=== PATIENT | female | born 1960 | race Caucasian/White ===

== ENCOUNTER 2019-06-05 18:22 | Emergency (ER) | payer OTHER ==
[~2019-06-05] VITALS: Ht 175.3 cm; Wt 68.0 kg
[~2019-06-05 18:22] MED LIST: GABAPENTIN300 MG PO; KLONOPIN1 MG PO; NORCO 7.5-3251 EACH PO; PROZAC20 MG PO
--- OUTSIDE RECORDS SUMMARY | 2019-06-05 18:25 | XMS REPORT | Continuity of Care Document ---
Author Author be2 Organization be2 Address Unknown Phone Unavailable Care Team Providers Care Wireless Technician Name Role Phone be2 Unavailable Unavailable Problems Problem Status Onset Date Classification Date Reported Comments Source COLON Active 03/12/2018 [facility] R10.9 - UNSPECIFIED ABDOMINAL PAIN Active 03/07/2018 [facility] Z13.820 - ENCOUNTER FOR SCREENING FOR OS Active 07/18/2017 ELIEL Brock UNK Active 06/15/2017 [facility] M25.511 - PAIN IN RIGHT SHOULDER Active [facility] ANGINA PECTORIS, ANXIETY ATTACK, HYPERTE Active 09/03/2016 [facility] CHEST PAIN/ARM PAIN Active 09/03/2016 [facility] Anxiety (finding) Resolved Problem 03/17/2018 ELIEL Brock,[facility] Hypertensive disorder, systemic arterial (disorder) Resolved Problem 03/17/2018 ELIEL Brock,[facility] Family history of aneurysm of thoracic aorta (situation) Resolved Problem 03/17/2018 [facility] History of calculus of kidney (situation) Resolved Problem 03/17/2018 [facility] Hysterectomy (procedure) Resolved Problem 03/17/2018 ELIEL Brock,[facility] ANGINA PECTORIS, UNSPECIFIED Active [facility] PANIC DISORDER WITHOUT AGORAPHOBIA Active [facility] HYPERTENSIVE URGENCY Active [facility] Medications Medication Details Route Status Patient Instructions Ordering Provider Order Date Source Ventolin HFA 2 puff, INHALATION, PRN, every 4-6 hours as needed, 0 Refill(s) Active 03/13/2018 [facility] pregabalin 50 MG Oral Capsule [Lyrica] 50 mg=1 cap, PO, PRN, take every 6 hours as needed, 0 Refill(s) Active 03/13/2018 [facility] Ipratropium Salix 0.021 MG/ACTUAT Metered Dose Nasal Monhegan 2 spray, Each Affected Nostril, TID, # 30 ml, 0 Refill(s) Active 03/13/2018 [facility] Acetaminophen 325 MG / Hydrocodone Bitartrate 10 MG Oral Tablet [Sesser 10/325] 1 tab, PO, Q6H, PRN for pain, # 24 tab, 0 Refill(s) Active 03/13/2018 [facility] gabapentin 300 MG Oral Capsule 300 mg=1 cap, PO, TID, # 90 cap, 0 Refill(s) Active 03/13/2018 [facility] 24 HR Divalproex Sodium 500 MG Extended Release Tablet 500 mg=1 tab, PO, BID, 0 Refill(s) Active 03/13/2018 [facility] Metoprolol Tartrate 25 mg oral tablet 25 mg=1 tab, PO, BID, # 60 tab, 0 Refill(s) Active 06/22/2017 [facility] Sodium Chloride 0.9% IV 1000 mL 1,000 mL, Rate: 25 ml/hr, Infuse over: 40 hr, Route: IV, Dosing Weight 70.909 kg, Total Volume: 1,000, Start date: 06/22/17 10:09:00 CDT, Duration: 30 day, Stop date: 07/22/17 10:08:00 CDT Inactive 06/22/2017 [facility] omeprazole 40 mg oral delayed release capsule 40 mg=1 cap, PO, Daily, # 30 cap, 0 Refill(s) Active 06/21/2017 [facility] sertraline 100 mg oral tablet 100 mg=1 tab, PO, Daily, # 30 tab, 0 Refill(s) Active 06/21/2017 [facility] divalproex sodium 250 mg oral enteric coated tablet (Depakote) 250 mg=1 tab, PO, BID, # 60 tab, 1 Refill(s) Active 06/21/2017 [facility] meloxicam 7.5 mg oral tablet 7.5 mg=1 tab, PO, PRN, 0 Refill(s) Active 06/21/2017 [facility] Folic Acid 1 MG Oral Tablet 1 mg=1 tab, PO, Daily, # 30 tab, 0 Refill(s) Active 06/21/2017 [facility] QUEtiapine 100 mg oral tablet 100 mg=1 tab, PO, Bedtime, # 30 tab, 1 Refill(s) Active 06/21/2017 [facility] gabapentin 600 MG Oral Tablet 600 mg=1 tab, PO, TID, # 270 tab, 0 Refill(s) Active 06/21/2017 [facility] Buspirone 7.5 mg, 1.5 tab, Route: PO, Drug form: TAB, Bedtime, Dosing Weight 68.182, kg, Start date: 09/04/16 21:00:00 FREEZER WORKER, Duration: 30 day, Stop date: 10/03/16 21:00:00 CSTNotes: (Same As: BuSpar) Inactive 09/05/2016 [facility] Simvastatin 20 mg, 1 tab, Route: PO, Drug form: TAB, Bedtime, Dosing Weight 68.182, kg, Start date: 09/04/16 21:00:00 FREEZER WORKER, Duration: 30 day, Stop date: 10/03/16 21:00:00 CSTNotes: (Same as: Zocor) Inactive 09/05/2016 [facility] citalopram 20 mg oral tablet 20 mg=1 tab, PO, Daily, # 30 tab, 0 Refill(s), Pharmacy: [facility]/pharmacy #[id number] Active 09/04/2016 [facility] clonazePAM 0.5 mg oral tablet 0.5 mg=1 tab, PO, BID, # 30 tab, 0 Refill(s) Active 09/04/2016 [facility] Lisinopril 10 mg, 2 tab, Route: PO, Drug form: TAB, Daily, Dosing Weight 68.182, kg, Start date: 09/04/16 9:00:00 FREEZER WORKER, Duration: 30 day, Stop date: 10/03/16 9:00:00 CSTNotes: (Same as: Prinivil, Zestril) Inactive 09/04/2016 [facility] Saline Flush 0.9% 10 ml, Route: IVP, Drug Form: INJ, Dosing Weight 68.182, kg, Q12H, Start date: 09/04/16 9:00:00 FREEZER WORKER, Duration: 30 day, Stop date: 10/03/16 21:00:00 CSTNotes: (Same as: BD Posiflush) Inactive 09/04/2016 [facility] duloxetine 30 mg, 1 cap, Route: PO, Drug form: DRC, BID, Dosing Weight 68.182, kg, Start date: 09/04/16 9:00:00 FREEZER WORKER, Duration: 30 day, Stop date: 10/03/16 17:00:00 CSTNotes: (Same as: Cymbalta) (Do Not Crush) Inactive 09/04/2016 [facility] Citalopram 10 mg, 1 tab, Route: PO, Drug form: TAB, Daily, Dosing Weight 68.182, kg, Start date: 09/04/16 9:00:00 FREEZER WORKER, Duration: 30 day, Stop date: 10/03/16 9:00:00 FREEZER WORKER Inactive 09/04/2016 [facility] pneumococcal capsular polysaccharide type 1 vaccine / pneumococcal capsular polysaccharide type 10A vaccine / pneumococcal capsular polysaccharide type 11A vaccine / pneumococcal capsular polysaccharide type 12F vaccine / pneumococcal capsular polysacchar 0.5 mL, Route: IM, Drug Form: INJ, Daily, Start date: 09/04/16 9:00:00 FREEZER WORKER, Duration: 1 doses or times, Stop date: 09/04/16 9:00:00 CSTNotes: (Same as: Pneumovax 23) Refrigerate Inactive 09/04/2016 [facility] influenza virus vaccine, inactivated 0.5 mL, Route: IM, Drug Form: SUSP, Daily, Start date: 09/04/16 9:00:00 FREEZER WORKER, Duration: 1 doses or times, Stop date: 09/04/16 9:00:00 CSTNotes: (Same as: Fluzone Quadrivalent, Fluarix Quadrivalent) For 3 years of age and older (0.5 mL IM) Shake well before use Inactive 09/04/2016 [facility] metoprolol tartrate 25 mg, 1 tab, Route: PO, Drug form: TAB, BID, Dosing Weight 68.182, kg, Start date: 09/04/16 9:00:00 FREEZER WORKER, Duration: 30 day, Stop date: 10/03/16 21:00:00 CSTNotes: (Same as: Lopressor) Inactive 09/04/2016 [facility] potassium chloride 20 mEq oral tablet, extended release 20 mEq, 1 tab, Route: PO, Drug form: ERTAB, Daily, Dosing Weight 68.182, kg, Start date: 09/04/16 9:00:00 FREEZER WORKER, Duration: 30 day, Stop date: 10/03/16 9:00:00 CSTNotes: (Same as: K-Dur 20) "Do Not Crush" With food and full glass of water Inactive 09/04/2016 [facility] ergocalciferol 50,000 IntlUnit, 1 cap, Route: PO, Drug form: CAP, Daily, Dosing Weight 68.182, kg, Start date: 09/04/16 9:00:00 FREEZER WORKER, Duration: 3 day, Stop date: 09/06/16 9:00:00 CSTNotes: (Same as: Vitamin D) "Do Not Crush" Inactive 09/04/2016 [facility] atropine 0.5 mg, 5 mL, Route: IVP, Drug form: INJ, PRN, PRN Bradycardia, Start date: 09/03/16 23:20:00 FREEZER WORKER, Duration: 30 day, Stop date: 10/03/16 23:19:00 FREEZER WORKER No Longer Active 09/04/2016 [facility] nitroglycerin 0.4 mg sublingual tablet 0.4 mg, 1 tab, Route: SL, Drug form: TAB, Q5Min, PRN Chest Pain, Start date: 09/03/16 23:20:00 FREEZER WORKER, Duration: 30 day, Stop date: 10/03/16 23:19:00 CSTNotes: (Same as:Nitroquick, Nitrostat) "Do Not Crush" Sublingual tablet No Longer Active 09/04/2016 [facility] Trazodone Hydrochloride 50 MG Oral Tablet 50 mg, 1 tab, Route: PO, Drug form: TAB, Bedtime, Dosing Weight 68.182, kg, PRN Insomnia, Start date: 09/03/16 22:19:00 FREEZER WORKER, Duration: 30 day, Stop date: 10/03/16 22:18:00 CSTNotes: (Same As: Desyrel) No Longer Active 09/04/2016 [facility] tramadol hydrochloride 50 MG Oral Tablet 50 mg, 1 tab, Route: PO, Drug form: TAB, Q6H, Dosing Weight 68.182, kg, PRN Pain Score 7-10, Start date: 09/03/16 22:19:00 FREEZER WORKER, Duration: 30 day, Stop date: 10/03/16 22:18:00 CSTNotes: Not to exceed 400mg/day. (Same As: Ultram) No Longer Active 09/04/2016 [facility] Morphine 2 mg, 1 mL, Route: IVP, Drug form: INJ, Q2H, Dosing Weight 68.182, kg, PRN Chest Pain, Start date: 09/03/16 22:16:00 FREEZER WORKER, Duration: 30 day, Stop date: 10/03/16 22:15:00 CSTNotes: (Same as:MORPhine Sulfate) No Longer Active 09/04/2016 [facility] Hydralazine 10 mg, 0.5 mL, Route: IV, Drug form: INJ, Q4H, Dosing Weight 68.182, kg, PRN Hypertension, Start date: 09/03/16 22:16:00 FREEZER WORKER, Duration: 30 day, Stop date: 10/03/16 22:15:00 CSTNotes: (Same as: Apresoline) Push over 5 minutes No Longer Active 09/04/2016 [facility] Nitroglycerin 0.4 MG Sublingual Tablet [Nitrostat] 0.4 mg, 1 tab, Route: SL, Drug form: TAB, Q5Min, Dosing Weight 68.182, kg, PRN Chest Pain, Start date: 09/03/16 22:16:00 FREEZER WORKER, Duration: 3 doses or times, Stop date: Limited # of timesNotes: (Same as:Nitroquick, Nitrostat) "Do Not Crush" Sublingual tablet No Longer Active 09/04/2016 [facility] Metoprolol 5 mg, 5 mL, Route: IV, Drug form: INJ, Q2H, Dosing Weight 68.182, kg, PRN Tachycardia, Start date: 09/03/16 22:16:00 FREEZER WORKER, Duration: 30 day, Stop date: 10/03/16 22:15:00 CSTNotes: (Same as: Lopressor) Push over 2 minutes No Longer Active 09/04/2016 [facility] Aspirin 325 MG Oral Tablet 325 mg, 1 tab, Route: PO, Drug form: TAB, Daily, Dosing Weight 68.182, kg, Start date: 09/03/16 22:15:00 FREEZER WORKER, Duration: 30 day, Stop date: 10/03/16 9:00:00 CSTNotes: Take with food. No Longer Active 09/04/2016 [facility] Alprazolam 0.5 MG Oral Tablet [Xanax] 0.5 mg, 1 tab, Route: PO, Drug form: TAB, ONCE, Dosing Weight 68.182, kg, Priority: STAT, Start date: 09/03/16 22:10:00 FREEZER WORKER, Stop date: 09/03/16 22:10:00 CSTNotes: With food or milk (Same as: Xanax) Inactive 09/04/2016 [facility] Saline Flush 0.9% 10 ml, Route: IVP, Drug Form: INJ, Dosing Weight 68.182, kg, PRN, PRN Line Flush, Start date: 09/03/16 22:01:00 FREEZER WORKER, Duration: 30 day, Stop date: 10/03/16 22:00:00 CSTNotes: (Same as: BD Posiflush) No Longer Active 09/04/2016 [facility] Morphine 4 mg, 2 mL, Route: IVP, Drug form: INJ, Q2H, Dosing Weight 68.182, kg, PRN Pain Score 7-10, Start date: 09/03/16 22:01:00 FREEZER WORKER, Duration: 30 day, Stop date: 10/03/16 22:00:00 CSTNotes: (Same as:MORPhine Sulfate) No Longer Active 09/04/2016 [facility] Nitroglycerin 0.4 mg, 1 tab, Route: SL, Drug form: TAB, Q5Min, Dosing Weight 68.182, kg, PRN Chest Pain, Start date: 09/03/16 22:01:00 FREEZER WORKER, Duration: 3 doses or times, Stop date: Limited # of timesNotes: (Same as: Nitroquick, Nitrostat) "Do Not Crush" Sublingual tablet Inactive 09/04/2016 [facility] Ondansetron 4 mg, 1 tab, Route: PO, Drug form: TAB, Q8H, Dosing Weight 68.182, kg, PRN Nausea & Vomiting, Start date: 09/03/16 22:01:00 FREEZER WORKER, Duration: 30 day, Stop date: 10/03/16 22:00:00 CSTNotes: (Same as: Zofran) No Longer Active 09/04/2016 [facility] Temazepam 15 mg, 1 cap, Route: PO, Drug form: CAP, Bedtime, Dosing Weight 68.182, kg, PRN Insomnia, Start date: 09/03/16 22:01:00 FREEZER WORKER, Duration: 30 day, Stop date: 10/03/16 22:00:00 CSTNotes: (Same As: Restoril) No Longer Active 09/04/2016 [facility] Acetaminophen 650 mg, 2 tab, Route: PO, Drug form: TAB, Q4H, Dosing Weight 68.182, kg, PRN Headache 1-5, Start date: 09/03/16 22:01:00 FREEZER WORKER, Duration: 30 day, Stop date: 10/03/16 22:00:00 CSTNotes: Do not exceed 4 gm/day. (Same as: Tylenol) No Longer Active 09/04/2016 [facility] Sodium Chloride 0.154 MEQ/ML Injectable Solution 1,000 mL, Rate: 50 ml/hr, Infuse over: 20 hr, Route: IV, Dosing Weight 68.182 kg, Total Volume: 1,000, Start date: 09/03/16 22:01:00 FREEZER WORKER, Stop date: 10/03/16 22:00:00 FREEZER WORKER No Longer Active 09/04/2016 [facility] Trazodone Hydrochloride 50 MG Oral Tablet 50 mg=1 tab, PO, Bedtime, PRN Insomnia, 0 Refill(s) Active 09/04/2016 [facility] FLUoxetine 20 mg oral capsule 20 mg=1 cap, PO, Daily, 0 Refill(s) No Longer Active 09/04/2016 [facility] tramadol hydrochloride 50 MG Oral Tablet 50 mg=1 tab, PO, Q6H, PRN Pain Score 7-10, 0 Refill(s) Active 09/04/2016 [facility] cyclobenzaprine 10 mg oral tablet 10 mg=1 tab, PO, Q8H, PRN as needed for muscle spasm, 0 Refill(s) No Longer Active 09/04/2016 [facility] Ativan 2 mg, Route: IVP, Drug form: INJ, ONCE, Dosing Weight 68.182, kg, Priority: STAT, Start date: 09/03/16 21:29:00 FREEZER WORKER, Stop date: 09/03/16 21:29:00 FREEZER WORKER Inactive 09/04/2016 [facility] potassium chloride 20 mEq oral tablet, extended release 40 mEq, 2 tab, Route: PO, Drug form: ERTAB, ONCE, Dosing Weight 68.182, kg, Priority: STAT, Start date: 09/03/16 21:19:00 FREEZER WORKER, Stop date: 09/03/16 21:19:00 CSTNotes: (Same as: K-Dur 20) "Do Not Crush" With food and full glass of water Inactive 09/04/2016 [facility] Dilaudid 0.5 mg, Route: IVP, ONCE, Dosing Weight 68.182, kg, Priority: STAT, Start date: 09/03/16 20:45:00 FREEZER WORKER, Stop date: 09/03/16 20:45:00 FREEZER WORKER Inactive 09/04/2016 [facility] Ativan 1 mg, Route: IVP, Drug form: INJ, ONCE, Dosing Weight 68.182, kg, Priority: STAT, Start date: 09/03/16 18:19:00 FREEZER WORKER, Stop date: 09/03/16 18:19:00 FREEZER WORKER Inactive 09/04/2016 [facility] Zofran 8 mg, Route: IVP, Drug form: INJ, ONCE, Dosing Weight 68.182, kg, Priority: STAT, Start date: 09/03/16 18:18:00 FREEZER WORKER, Stop date: 09/03/16 18:18:00 FREEZER WORKER Inactive 09/04/2016 [facility] Dilaudid 0.5 mg, Route: IVP, ONCE, Dosing Weight 68.182, kg, Priority: STAT, Start date: 09/03/16 18:18:00 FREEZER WORKER, Stop date: 09/03/16 18:18:00 FREEZER WORKER Inactive 09/04/2016 [facility] Saline Flush 0.9% 10 mL, Route: IVP, Drug Form: INJ, Dosing Weight 79.545, kg, PRN, PRN Line Flush, Start date: 09/03/16 16:44:00 FREEZER WORKER, Duration: 30 day, Stop date: 10/03/16 16:43:00 CSTNotes: (Same as: BD Posiflush) Inactive 09/03/2016 [facility] Allergies, Adverse Reactions, Alerts No Known Medication Allergies Immunizations Immunization Date Given Site Status Last Updated Comments Source pneumococcal 23-valent vaccine 09/04/2016 Not Given [facility] [place] influenza virus vaccine, inactivated 09/04/2016 Not Given [facility] Results Order Name Results Value Reference Range Date Interpretation Comments Source CARDIAC ENZYMES Troponin-I <0.02 0.00 - 0.40 09/04/2016 [facility] CARDIAC ENZYMES Total CK 61 12 - 191 09/04/2016 [facility] CARDIAC ENZYMES BNP 59 <=100 pg/mL 09/04/2016 [facility] CHEM PANEL Bili Indirect 0.2 0.0 - 1.0 09/04/2016 [facility] CHEM PANEL Bili Direct 0.3 0.0 - 0.3 09/04/2016 [facility] CHEM PANEL A/G Ratio 0.9 0.7 - 1.6 09/04/2016 [facility] CHEM PANEL Globulin 3.6 2.7 - 4.2 09/04/2016 [facility] CHEM PANEL Alk Phos 162 39 - 136 09/04/2016 [facility] CHEM PANEL Bili Total 0.5 0.2 - 1.3 09/04/2016 [facility] CHEM PANEL AST 311 0 - 37 09/04/2016 [facility] CHEM PANEL Albumin Lvl 3.1 3.5 - 5.0 09/04/2016 [facility] CHEM PANEL ALT 181 0 - 65 09/04/2016 [facility] CHEM PANEL Total Protein 6.7 6.4 - 8.4 09/04/2016 [facility] CHEM PANEL Vitamin D2 1,25 (OH)2 <10 09/04/2016 [facility] CHEM PANEL Vitamin D3 1,25 (OH)2 44 09/04/2016 Result Comment: Performed At: [facility]
[address], [place] [id number]
Cong Kincaid MD Ph:[phone] [facility] CHEM PANEL Vitamin D 1,25 (OH)2 Total 54 09/04/2016 Result Comment: Reference Range:
Adults: 21 - 65 [facility] CHEM PANEL Uric Acid 4.1 2.5 - 7.0 09/04/2016 [facility] HEMATOLOGY Sed Rate 8 0 - 20 09/04/2016 [facility] IMMUNOLOGY Homocyst Tot 26.9 3.7 - 13.9 09/04/2016 [facility] LIPIDS CHD Risk 3.75 3.90 - 5.80 09/04/2016 [facility] LIPIDS VLDL 16 09/04/2016 [facility] LIPIDS Trig 78 <=149 mg/dL 09/04/2016 [facility] LIPIDS Chol 135 <=199 mg/dL 09/04/2016 [facility] LIPIDS HDL 36 >=61 mg/dL 09/04/2016 [facility] LIPIDS LDL (Calculated) 83 <=99 mg/dL 09/04/2016 [facility] SPECIAL CHEMISTRY Hgb A1C 5.9 <=5.6 % 09/04/2016 [facility] CARDIAC ENZYMES Troponin-I <0.02 0.00 - 0.40 09/04/2016 [facility] CARDIAC ENZYMES Total CK 96 12 - 191 09/04/2016 [facility] CARDIAC ENZYMES CK MB Index 1.5 0.0 - 2.5 09/04/2016 [facility] CARDIAC ENZYMES CK MB 1.4 0.5 - 3.6 09/04/2016 [facility] CHEM PANEL Phosphorus 4.0 2.5 - 4.5 09/04/2016 [facility] CHEM PANEL Magnesium Lvl 2.4 1.8 - 2.4 09/04/2016 [facility] LIPIDS CHD Risk 4.35 3.90 - 5.80 09/04/2016 [facility] LIPIDS Chol 148 <=199 mg/dL 09/04/2016 [facility] LIPIDS HDL 34 >=61 mg/dL 09/04/2016 [facility] LIPIDS Trig 97 <=149 mg/dL 09/04/2016 [facility] LIPIDS LDL (Calculated) 95 <=99 mg/dL 09/04/2016 [facility] LIPIDS VLDL 19 09/04/2016 [facility] CARDIAC ENZYMES CK MB Index 2.6 0.0 - 2.5 09/03/2016 [facility] CARDIAC ENZYMES CK MB 1.8 0.5 - 3.6 09/03/2016 [facility] CARDIAC ENZYMES Total CK 69 12 - 191 09/03/2016 [facility] CARDIAC ENZYMES Troponin-I <0.02 0.00 - 0.40 09/03/2016 [facility] CHEM PANEL eGFR 82 09/03/2016 Result Comment: The eGFR is calculated using the CKD-EPI formula. In most young, healthy individuals the eGFR will be >90 mL/min/1.73m2. The eGFR declines with age. An eGFR of 60-89 may be normal in some populations, particularly the elderly, for whom the CKD-EPI formula has not been extensively validated. Use of the eGFR is not recommended in the following populations:

Individuals with unstable creatinine concentrations, including patients and those with serious co-morbid conditions.

Patients with extremes in muscle mass or diet.

The data above are obtained from the National Kidney Disease Education Program (NKDEP) which additionally recommends that when the eGFR is used in patients with extremes of body mass index for purposes of drug dosing, the eGFR should be multiplied by the estimated BMI. [facility] CHEM PANEL BUN 7 7 - 22 09/03/2016 [facility] CHEM PANEL CO2 26 24 - 32 09/03/2016 [facility] CHEM PANEL Glucose Lvl 94 70 - 99 09/03/2016 [facility] CHEM PANEL Albumin Lvl 3.6 3.5 - 5.0 09/03/2016 [facility] CHEM PANEL Globulin 4.0 2.7 - 4.2 09/03/2016 [facility] CHEM PANEL Potassium Lvl 3.0 3.5 - 5.1 09/03/2016 Result Comment: Critical Result(s) called to aster at 09/03/2016 18:29 by_sol. Read back OK. [facility] CHEM PANEL Chloride Lvl 104 95 - 109 09/03/2016 [facility] CHEM PANEL Creatinine Lvl 0.80 0.50 - 1.40 09/03/2016 [facility] Sodium Lvl 140 135 - 145 09/03/2016 [facility] Calcium Lvl 8.7 8.5 - 10.5 09/03/2016 [facility] Alk Phos 129 39 - 136 09/03/2016 [facility] CHEM PANEL Bili Total 0.6 0.2 - 1.3 09/03/2016 [facility] B/C Ratio 9 6 - 25 09/03/2016 [facility] Total Protein 7.6 6.4 - 8.4 09/03/2016 [facility] AGAP 13.0 10.0 - 20.0 09/03/2016 [facility] A/G Ratio 0.9 0.7 - 1.6 09/03/2016 [facility] PANEL ALT 29 0 - 65 09/03/2016 [facility] PAN[facility] AST 53 0 - 37 09/03/2016 [facility] HEMATOLOGY Eosinophils # 8.0 0.0 - 0.5 09/03/2016 [facility] HEMATOLOGY Basophils # 0.2 0.0 - 0.2 09/03/2016 [facility] HEMATOLOGY Lymphocytes # 2.7 1.0 - 5.5 09/03/2016 [facility] HEMATOLOGY Segs-Bands # 6.7 1.5 - 8.1 09/03/2016 [facility] HEMATOLOGY Monocytes # 0.5 0.0 - 0.8 09/03/2016 [facility] HEMATOLOGY Basophils 1.3 0.0 - 1.0 09/03/2016 [facility] HEMATOLOGY Eosinophils 44.0 0.0 - 4.0 09/03/2016 [facility] HEMATOLOGY Monocytes 2.7 2.0 - 12.0 09/03/2016 [facility] HEMATOLOGY Segs 37.2 45.0 - 75.0 09/03/2016 [facility] HEMATOLOGY RBC Morph Normal (09/03/16 5:45 PM) 09/03/2016 [facility] HEMATOLOGY Plt Morph Normal (09/03/16 5:45 PM) 09/03/2016 [facility] HEMATOLOGY Lymphocytes 14.8 20.0 - 40.0 09/03/2016 [facility] HEMATOLOGY PTT 28.9 22.9 - 35.8 09/03/2016 [facility] HEMATOLOGY PT 13.1 12.0 - 14.7 09/03/2016 [facility] HEMATOLOGY INR 0.97 0.85 - 1.17 09/03/2016 [facility] HEMATOLOGY MPV 8.1 7.4 - 10.4 09/03/2016 [facility] Platelet 314 133 - 450 09/03/2016 [facility] RDW 16.9 11.5 - 14.5 09/03/2016 [facility] MCHC 32.3 32.0 - 36.0 09/03/2016 [facility] MCH 25.8 27.0 - 31.0 09/03/2016 [facility] WBC 18.1 3.7 - 10.4 09/03/2016 [facility] Hct 35.9 36.0 - 48.0 09/03/2016 [facility] Hgb 11.6 12.0 - 16.0 09/03/2016 [facility] RBC 4.51 4.20 - 5.40 09/03/2016 [facility] MCV 79.7 80.0 - 98.0 09/03/2016 [facility] URINE AND STOOL UA Sq Epi Occasional /LPF Few /LPF 09/03/2016 [facility] URINE AND STOOL UA WBC <1 0 - 5 09/03/2016 [facility] URINE AND STOOL UA Urobilinogen <=1.0 mg/dL 0.1 - 1.0 09/03/2016 [facility] URINE AND STOOL UA RBC 1 0 - 2 09/03/2016 [facility] URINE AND STOOL UA Color Colorless 09/03/2016 [facility] URINE AND STOOL UA Ketones Negative mg/dL Negative mg/dL 09/03/2016 [facility] URINE AND STOOL UA Nitrite Negative (09/03/16 4:53 PM) Negative 09/03/2016 [facility] URINE AND STOOL UA Leuk Est Negative (09/03/16 4:53 PM) Negative 09/03/2016 [facility] URINE AND STOOL UA Bili Negative *NA* (09/03/16 4:53 PM) Negative 09/03/2016 [facility] URINE AND STOOL UA Blood Small *ABN* (09/03/16 4:53 PM) Negative 09/03/2016 [facility] URINE AND STOOL UA Spec Grav 1.003 <=1.030 09/03/2016 [facility] URINE AND STOOL UA pH 6.0 5.0 - 8.0 09/03/2016 [facility] URINE AND STOOL UA Turbidity Clear (09/03/16 4:53 PM) Clear 09/03/2016 [facility] URINE AND STOOL UA Protein Negative mg/dL Negative mg/dL 09/03/2016 [facility] URINE AND STOOL UA Glucose Negative mg/dL Negative mg/dL 09/03/2016 [facility] Pathology Reports No Data Provided for This Section Diagnostic Reports Report Value Date Source Abdomen 2 views DX EXAM: XR ABDOMEN 2 VIEWS DATE: 03/07/2018 2:13 PM CDT INDICATION: - K59.00 Constipation, unspecified ADDITIONAL INFORMATION: None. COMPARISON: CT chest abdomen and pelvis 09/03/2016. TECHNIQUE: Upright and supine abdominal radiographs. FINDINGS: Lines, tubes and hardware: None. Lower thorax: Unremarkable where visualized. Median sternotomy wires are partially visualized. Abdomen and bowel: Scattered bowel gas and moderate colonic stool burden. No andrew dilation of bowel loops. There are nonspecific scattered air-fluid levels in the left/mid abdomen on the upright view. Bones and soft tissues: No acute abnormality. Multilevel degenerative lumbar spondylosis. IMPRESSION: 1. Nonobstructive bowel gas pattern with moderate stool burden. 2. Nonspecific, air-fluid level in few bowel loops in the left mid abdomen. 03/07/2018 [facility] Chest 2 views DX EXAM: XR CHEST 2 VIEWS DATE: 07/13/2017 10:17 AM CDT INDICATION: - R05 Cough COMPARISON: 09/03/2016 TECHNIQUE: PA and lateral chest radiographs FINDINGS: No lung parenchymal or pleural abnormalities are seen. Keshia and pulmonary vasculature are normal. Cardiomediastinal silhouette is normal in appearance. No acute bony abnormality is identified. A healed right eighth rib fracture is again demonstrated. Midline sternotomy wires are again seen. The patient has undergone interim ACDF procedure of the inferior cervical spine with hardware visualized. IMPRESSION: No acute cardiopulmonary abnormality. Interim cervical spine ACDF surgery. 07/13/2017 [facility] Spine lumbar wo contrast MRI LUMBAR SPINE MRI 03/12/2017. TECHNIQUE: Sagittal T1, sagittal T2 with fat saturation, axial T1 and axial T2 images were obtained. Comparison: CT of the abdomen and pelvis from 03/23/16 FINDINGS: Moderate type I and type III (fibrovascular/edematous and sclerotic) endplate changes are noted at L4-L5, without additional signs of infection. The vertebrae are otherwise normal in shape, signal intensity and alignment. The intervertebral disks are desiccated with moderate height loss at L4-L5. The paravertebral musculature demonstrates mild fatty atrophy in keeping with deconditioning. The conus medullaris terminates normally at the L1-L2 level. There is no intradural mass lesion. L1-L2 through L3-L4: Minimal disc bulge and facet hypertrophy. No disc herniation or significant stenosis. L4-L5: Moderate disc bulge and facet hypertrophy with mild ligamentum flavum thickening. This results in moderate left greater than right neural foraminal narrowing with deformity of the L4 nerve roots. Mild lateral recess narrowing. L5-S1: Minimal disc bulge with mild to moderate right greater than left facet hypertrophy. This results in moderate right and mild left neural foraminal narrowing with deformity of the right L5 nerve root. IMPRESSION: Moderate lower lumbar degenerative changes as detailed above including type I and type III moderate endplate changes at L4-L5. Foraminal stenoses with deformity of the left greater than right L4 and right L5 nerve roots. 03/12/2017 [facility] Spine cervical wo contrast MRI CERVICAL SPINE MRI WITHOUT CONTRAST: 03/12/2017 TECHNIQUE: Sagittal T1 and T2 weighted images were followed by axial T2-weighted views of the cervical spine without IV contrast. Comparison: 12/12/[address] FINDINGS: The cervical cord is normal in size and signal intensity. There is no syrinx. The cerebellar tonsils are normal in position above the level of the foramen magnum. Mild type I (fibrovascular or edematous) endplate changes are noted anteriorly at C5-C6 greater than C6-C7. No additional signs of infection. The vertebrae are otherwise normal in shape, signal intensity and alignment. The intervertebral disks are desiccated with mild height loss probably at C5-C6 through C7-T1. The prevertebral soft tissues are normal. C2-C3: No abnormality. C3-C4: Uncovertebral and moderate right greater than left facet hypertrophy results in moderate right and mild left neural foraminal narrowing, with deformity of the right C4 nerve root. C4-C5: Mild disc osteophyte complexes with moderate uncovertebral and facet hypertrophy. This results in moderate left greater right neural foraminal narrowing with deformity of the C5 nerve roots. C5-C6: Moderate disc osteophyte complexes measuring up to 3 mm diffusely with moderate left greater than right uncovertebral and mild facet hypertrophy. This results in moderate left and mild right neural foraminal narrowing with deformity/compression of the left C6 nerve root. Mild to moderate left canal stenosis with slight anterior cord flattening. C6-C7: Mild disc osteophyte complexes with mild uncovertebral facet hypertrophy resulting in mild bilateral neural foraminal narrowing. C7-T1: No abnormality. IMPRESSION: Moderate mid cervical degenerative changes as detailed above including: mild type I endplate changes, mild to moderate left C5-C6 canal stenosis with slight anterior cord flattening, and multilevel foraminal stenoses including deformity of the left greater than right C5 and the left C6 nerve roots. 03/12/2017 [facility] Chest US EXAM: Left infraclavicular superficial ultrasound. CLINICAL HX: R22.2 Localized swelling, mass and lump, trunk - R22.2 Localized swelling, mass and lump, trunk. Lump under the left clavicle for 6 months. Sometimes tender. Age: 56 years. Gender: Female. TECHNIQUE: Grayscale and Doppler sonogram targeted to the left infraclavicular region (area of palpable abnormality). COMPARISON: CT chest: 09/03/2016. FINDINGS: At the area of concern in the soft tissues: -- Mass: 3.2 x 2.6 x 3.2 cm oval heterogeneous mass with internal striations. A few spots of internal Doppler flow are present. This is not completely evaluated on this exam. -- Drainable fluid collection: None. -- Other: None. IMPRESSION: 1. In the left infraclavicular region, there is an oval heterogeneous mass. This may represent muscle tissue or a lipomatous lesion. Favor the latter, as a lipoma is present in this region on prior August 2016 CT chest (series 2 image 5). Correlate clinically. If additional imaging evaluation is desired, repeat noncontrast CT chest with a BB marking the area can be considered. 03/12/2017 [facility] Hip 2/3 views uni DX EXAM: XR RIGHT HIP 2 VIEW EXAM: XR RIGHT FEMUR 2 VIEW DATE: 01/22/2017 1:00 PM CDT INDICATION: M25.551 Pain in right hip COMPARISON: Available TECHNIQUE: 2 views of the hip including the pelvis. 2 views of the right femur. FINDINGS: No acute fracture or malalignment is identified. Hip joint spaces are preserved bilaterally. Marginal right acetabular osteophytes and femoral neck bony prominence is consistent with mild osteoarthritis. Enthesophyte formation is seen at the iliac crest. There are minimal degenerative changes in the inferior sacroiliac joint. Soft tissues are normal. IMPRESSION: 1. No acute bony abnormality. 2. Mild osteoarthrosis of the right hip joint. 01/22/2017 [facility] Femur series DX EXAM: XR RIGHT HIP 2 VIEW EXAM: XR RIGHT FEMUR 2 VIEW DATE: 01/22/2017 1:00 PM CDT INDICATION: M25.551 Pain in right hip COMPARISON: Available TECHNIQUE: 2 views of the hip including the pelvis. 2 views of the right femur. FINDINGS: No acute fracture or malalignment is identified. Hip joint spaces are preserved bilaterally. Marginal right acetabular osteophytes and femoral neck bony prominence is consistent with mild osteoarthritis. Enthesophyte formation is seen at the iliac crest. There are minimal degenerative changes in the inferior sacroiliac joint. Soft tissues are normal. IMPRESSION: 1. No acute bony abnormality. 2. Mild osteoarthrosis of the right hip joint. 01/22/2017 [facility] Abdomen RUQ US Study: Abdomen RUQ US Clinical Indication: Abnormal Lab tests- LFT Comparison: CT abdomen and pelvis from 09/03/2016 TECHNIQUE: Grayscale and limited color sonographic evaluation of the right upper quadrant was performed with standard technique. FINDINGS: The liver is normal in size and echotexture measuring 14.2 cm. The pancreas is normal in the visualized portions. IVC is patent. Patient is status post cholecystectomy.There is no biliary duct dilatation. Common bile duct measures 2 mm. Sonographic Gonsales's sign is negative. The right kidney is normal in size and echotexture without stones or hydronephrosis. The right kidney measures 10.1 x 4.5 x 5.5 cm. The main portal vein is patent and with hepatopedal flow. No free fluid is noted. IMPRESSION: 1. Status post cholecystectomy. 2. Otherwise, normal abdomen ultrasound. SL: [id number] 09/04/2016 [facility] Chest/Abdomen/Pelvis w IV contrast CT EXAM: CT CHEST, ABDOMEN, AND PELVIS WITH CONTRAST DATE: 09/03/2016 6:18 PM [employer] INDICATION: Chest pain. COMPARISON: None. TECHNIQUE: Helical CT imaging of the chest, abdomen and pelvis was performed from thoracic inlet through the lesser trochanters following the administration of intravenous contrast in the arterial phase. Axial, sagittal and coronal multiplanar reconstructions provided. IV contrast: [address] Radiation Dose: RPQ=6658.93 mGy-cm FINDINGS: CHEST LUNG PARENCHYMA AND PLEURA: No interstitial or airspace opacities. A 3 mm fissural nodule is noted on series 4 image 24. No pneumothorax or pleural effusion. AIRWAYS: The central airways are unremarkable. Trachea is midline. MEDIASTINUM: No significant mediastinal lymphadenopathy. HEART: Median sternotomy wires are visualized. The heart is not enlarged. No pericardial effusion. VASCULAR: Mild atherosclerotic calcification of the aortic arch is visualized. No aneurysmal dilatation or dissection is present. The main pulmonary artery trunk is not enlarged. AXILLAE AND LOWER NECK: Visible portions unremarkable. ABDOMEN AND PELVIS: LIVER: Unremarkable. Interposition of the colon adjacent to the liver is identified. GALLBLADDER/BILIARY: The patient is status post cholecystectomy, with physiologic dilatation of the intrahepatic and extrahepatic ducts. PANCREAS: Unremarkable SPLEEN: Unremarkable ADRENALS: Unremarkable KIDNEYS AND URETERS: Unremarkable BLADDER: Unremarkable STOMACH: Unremarkable BOWEL: Normal in course and caliber without focal wall thickening or evidence of obstruction APPENDIX: The appendix is visualized and unremarkable. PELVIS: Patient is status post hysterectomy. PERITONEUM: No ascites or free air. LYMPH NODES: Unremarkable. VASCULAR: There is atherosclerotic calcification of the descending aorta and iliac arteries, without evidence for aneurysmal dilatation or dissection. OSSEOUS STRUCTURES: Multilevel degenerative changes of the thoracolumbar spine are visualized, most pronounced at L4-L5. SOFT TISSUES: Unremarkable IMPRESSION: No acute abnormality within the chest, abdomen, or pelvis. Specifically, there is no evidence for aortic dissection. SL: [id number] 09/03/2016 [facility] Chest 1view DX Patient Name: RAGHAV AGUIRRE : 1960; Age: 56 years y/o Female MR: [id number] Study: Chest 1view DX dated 09/03/2016 Clinical Indication: Chest pain; Comparison: None There appears to be a prior right 8th posterior lateral rib fracture. There is interposition of bowel between the liver and right hemidiaphragm. Patient is status post median sternotomy. Heart size is normal. Thoracic aorta is mildly tortuous and contains calcification. Mediastinal structures otherwise unremarkable. No focal infiltrates within the lungs, no edema and no pneumothorax. SL: [id number] 09/03/2016 [facility] Consultation Notes No Data Provided for This Section Discharge Summaries No Data Provided for This Section History and Physicals No Data Provided for This Section Vital Signs Vital Sign Value Date Comments Source Systolic (mm Hg) 110 03/14/2018 [facility] Diastolic (mm Hg) 68 03/14/2018 [facility] Respitory Rate 20 03/14/2018 [facility] Systolic (mm Hg) 108 03/14/2018 [facility] Diastolic (mm Hg) 58 03/14/2018 [facility] Respitory Rate 20 03/14/2018 [facility] Systolic (mm Hg) 69 03/14/2018 [facility] Diastolic (mm Hg) 54 03/14/2018 [facility] Respitory Rate 19 03/14/2018 [facility] BMI Calculated 27.5 03/13/2018 [facility] Weight 77.273 03/13/2018 [facility] Height 167.64 cm 03/13/2018 [facility] Systolic (mm Hg) 118 06/22/2017 [facility] Diastolic (mm Hg) 61 06/22/2017 [facility] Respitory Rate 16 06/22/2017 [facility] Respitory Rate 16 06/22/2017 [facility] Systolic (mm Hg) 118 06/22/2017 [facility] Diastolic (mm Hg) 58 06/22/2017 [facility] Respitory Rate 18 06/22/2017 [facility] Systolic (mm Hg) 118 06/22/2017 [facility] Diastolic (mm Hg) 61 06/22/2017 [facility] Height 167.64 cm 06/20/2017 [facility] BMI Calculated 25.23 06/20/2017 [facility] Weight 70.909 06/20/2017 [facility] Systolic (mm Hg) 106 09/04/2016 [facility] Diastolic (mm Hg) 66 09/04/2016 [facility] Respitory Rate 17 09/04/2016 [facility] Heart Rate 78 09/04/2016 [facility] Temperature Oral (F) 97.7 F 09/04/2016 [facility] Respitory Rate 17 09/04/2016 [facility] Systolic (mm Hg) 110 09/04/2016 [facility] Diastolic (mm Hg) 64 09/04/2016 [facility] Temperature Oral (F) 97.4 F 09/04/2016 [facility] Heart Rate 79 09/04/2016 [facility] Systolic (mm Hg) 117 09/04/2016 [facility] Diastolic (mm Hg) 75 09/04/2016 [facility] Heart Rate 86 09/04/2016 [facility] Respitory Rate 16 09/04/2016 [facility] Temperature Oral (F) 97.6 F 09/04/2016 [facility] Weight 68.182 09/04/2016 [facility] BMI Calculated 23.56 09/04/2016 [facility] Height 170.1 cm 09/04/2016 [facility] Weight 68.182 09/03/2016 [facility] Height 170.18 cm 09/03/2016 [facility] BMI Calculated 23.54 09/03/2016 [facility] Encounters Location Location Details Encounter Type Encounter Number Reason For Visit Attending Provider ADM Date DC Date Status Source [facility] Observation [id number] Bernard Mcgregor 09/03/2016 09/04/2016 [facility] [place] [facility] [id number] Pietro-Nik Cantu 12/12/2016 12/13/2016 [facility] [place] [facility] [id number] Pietro-Nik Cantu 01/22/2017 01/23/2017 [facility] [place] [facility] [id number] Lamonte Cantu 03/12/2017 03/13/2017 [facility] [id number] Nathan Soriano 06/22/2017 06/22/2017 [facility] [place] [facility] [id number] Cristobal Gonsales 07/13/2017 07/14/2017 [facility] [place] [facility] [id number] Nathan Soriano 03/07/2018 03/08/[address] [facility] Bed[facility] Outpatient [id number] Nathan Soriano 03/14/2018 03/14/2018 [facility] Procedures Procedure Code Date Perfomer Comments Source Hemorrhoid operation [id number] [facility] Laparoscopic assisted vaginal hysterectomy with repair of cystocele [id number] [facility] Open heart surgery [id number] [facility] Open reduction of dislocation of hand [id number] [facility] Removal of gallbladder [id number] [facility] Assessment and Plan No Data Provided for This Section Plan of Care No Data Provided for This Section Social History Social History Date Source Social History TypeResponse Substance Abuse Use: None. IV drug use: No. Drug use interferes with work/home: No. Ready to change: No. Household substance abuse concerns: No. Cessation Education Provided: No. Sexual Partner with STD? No. Uses condoms: No. History of sexual abuse: No. Employment/School Operates hazardous equipment: No. Alcohol Never, 0 Drinks/Episode average. 0.00 Drinks/Episode maximum. Alcohol use interferes with work or home: No. Drinks more than intended: No. Others hurt by drinking: No. Ready to change: No. Household alcohol concerns: No. Smoking Status Heavy tobacco smoker; Type: Cigarettes; Tobacco use per day: 1; Number of years: 32; Total pack years: 32; Started at age: 21.0; Stopped at age: 1; Ready to change: Yes; Concerns about tobacco use in household: Yes; Exposure to Tobacco Smoke None; Cigarette Smoking Last 365 Days Unable to obtain; Reg Smoking Cessation Counseling No 02/14/2016 ELIEL Biswasa Social History TypeResponse Substance Abuse Use: None. IV drug use: No. Drug use interferes with work/home: No. Ready to change: No. Household substance abuse concerns: No. Cessation Education Provided: No. Sexual Partner with STD? No. Uses condoms: No. History of sexual abuse: No. Employment/School Operates hazardous equipment: No. Alcohol Never, 0 Drinks/Episode average. 0.00 Drinks/Episode maximum. Alcohol use interferes with work or home: No. Drinks more than intended: No. Others hurt by drinking: No. Ready to change: No. Household alcohol concerns: No. Smoking Status Heavy tobacco smoker; Type: Cigarettes; Ready to change: Yes; Concerns about tobacco use in household: Yes; Exposure to Tobacco Smoke None; Cigarette Smoking Last 365 Days Unable to obtain; Reg Smoking Cessation Counseling No; Tobacco use per day: 1; Number of years: 32; Total pack years: 32; Started at age: [age]; Stopped at age: 1; entered on: 06/21/17 02/14/2016 [facility] [place] Social History TypeResponse Substance Abuse Use: None. IV drug use: No. Drug use interferes with work/home: No. Ready to change: No. Household substance abuse concerns: No. Cessation Education Provided: No. Sexual Partner with STD? No. Uses condoms: No. History of sexual abuse: No. Employment/School Operates hazardous equipment: No. Alcohol Never, 0 Drinks/Episode average. 0.00 Drinks/Episode maximum. Alcohol use interferes with work or home: No. Drinks more than intended: No. Others hurt by drinking: No. Ready to change: No. Household alcohol concerns: No. Smoking Status Heavy tobacco smoker; Type: Cigarettes; Ready to change: Yes; Concerns about tobacco use in household: Yes; Exposure to Tobacco Smoke None; Cigarette Smoking Last 365 Days Unable to obtain; Reg Smoking Cessation Counseling No; Tobacco use per day: 1; Number of years: 32; Total pack years: 32; Started at age: 21.0; Stopped at age: 1; entered on: 03/14/18 02/14/2016 [facility] Family History No Data Provided for This Section Advance Directives No Data Provided for This Section Functional Status No Data Provided for This Section
--- OUTSIDE RECORDS SUMMARY | 2019-06-05 18:26 | XMS REPORT | Summary of Care ---
Author Author [facility] Organization [facility] Address Unknown Phone Unavailable Encounter ADAMA Raman([place]) [id number] Date(s): 09/03/16 - 09/04/16 [facility] [address] [place] [address]- Discharge Disposition: Home or Self Care Attending Physician: Bernard Matos MD Admitting Physician: Bernard Matos MD Vital Signs 1 2 3 Most recent to oldest [Reference Range]: 170.1 cm (09/03/16 10:52 PM) 170.18 cm (09/03/16 4:45 PM) Height 66.955 kg (09/04/16 6:10 AM) Current Weight 97.7 DegF (09/04/16 11:00 AM) 97.4 DegF (09/04/16 7:19 AM) 97.6 DegF (09/04/16 3:16 AM) Temperature Oral [96.4-99.1 DegF] 106/66 mmHg (09/04/16 11:00 AM) 110/64 mmHg (09/04/16 7:19 AM) 117/75 mmHg (09/04/16 3:16 AM) Blood Pressure [90-140/60-90 mmHg] 17 BRMIN (09/04/16 11:00 AM) 17 BRMIN (09/04/16 7:19 AM) 16 BRMIN (09/04/16 3:16 AM) Respiratory Rate [14-20 BRMIN] 78 bpm (09/04/16 11:00 AM) 79 bpm (09/04/16 7:19 AM) 86 bpm (09/04/16 3:16 AM) Peripheral Pulse Rate [60-100 bpm] 68.182 kg (09/03/16 10:52 PM) 68.182 kg (09/03/16 4:45 PM) Weight 23.56 m2 (09/03/16 10:52 PM) 23.54 m2 (09/03/16 4:45 PM) Body Mass Index Problem List Condition Effective Dates Status Health Status Informant Anxiety(Confirmed) Resolved BP+ - Resolved Hypertension(Confirm ed) Hysterectomy(Confirm Resolved ed) Allergies, Adverse Reactions, Alerts Substance Reaction Severity Status NKDA Active Medications acetaminophen 650 mg, 2 tab, Route: PO, Drug form: TAB, Q4H, Dosing Weight 68.182, kg, PRN Hea dache 1-5, Start date: 09/03/16 22:01:00 LINING PRESSER, Duration: 30 day, Stop date: 10/03 22:00:00 LINING PRESSER Notes: Do not exceed 4 gm/day. (Same as: Tylenol) Start Date: 09/03/16 Stop Date: 09/04/16 Status: Discontinued aspirin 325 mg tablet 325 mg, 1 tab, Route: PO, Drug form: TAB, Daily, Dosing Weight 68.182, kg, Start date: 09/03/16 22:15:00 LINING PRESSER, Duration: 30 day, Stop date: 10/03/16 9:00:00 LINING PRESSER Notes: Take with food. Start Date: 09/03/16 Stop Date: 09/04/16 Status: Discontinued Ativan 1 mg, Route: IVP, Drug form: INJ, ONCE, Dosing Weight 68.182, kg, Priority: STAT , Start date: 09/03/16 18:19:00 LINING PRESSER, Stop date: 09/03/16 18:19:00 LINING PRESSER Start Date: 09/03/16 Stop Date: 09/03/16 Status: Completed Ativan 2 mg, Route: IVP, Drug form: INJ, ONCE, Dosing Weight 68.182, kg, Priority: STAT , Start date: 09/03/16 21:29:00 LINING PRESSER, Stop date: 09/03/16 21:29:00 LINING PRESSER Start Date: 09/03/16 Stop Date: 09/03/16 Status: Completed atropine 0.5 mg, 5 mL, Route: IVP, Drug form: INJ, PRN, PRN Bradycardia, Start date: 08/09 04/22 23:20:00 LINING PRESSER, Duration: 30 day, Stop date: 10/03/16 23:19:00 LINING PRESSER Start Date: 09/03/16 Stop Date: 09/04/16 Status: Discontinued busPIRone 7.5 mg, 1.5 tab, Route: PO, Drug form: TAB, Bedtime, Dosing Weight 68.182, kg, S tart date: 09/04/16 21:00:00 LINING PRESSER, Duration: 30 day, Stop date: 10/03/16 21:00:00 LINING PRESSER Notes: (Same As: BuSpar) Start Date: 09/04/16 Stop Date: 09/04/16 Status: Canceled citalopram 10 mg, 1 tab, Route: PO, Drug form: TAB, Daily, Dosing Weight 68.182, kg, Start date: 09/04/16 9:00:00 LINING PRESSER, Duration: 30 day, Stop date: 10/03/16 9:00:00 LINING PRESSER Start Date: 09/04/16 Stop Date: 09/04/16 Status: Discontinued citalopram 20 mg oral tablet 20 mg=1 tab, PO, Daily, # 30 tab, 0 Refill(s), Pharmacy: [facility]/pharmacy #[id number] Start Date: 09/04/16 Status: Ordered clonazePAM 0.5 mg oral tablet 0.5 mg=1 tab, PO, BID, # 30 tab, 0 Refill(s) Start Date: 09/04/16 Status: Ordered cyclobenzaprine 10 mg oral tablet 10 mg=1 tab, PO, Q8H, PRN as needed for muscle spasm, 0 Refill(s) Start Date: 09/03/16 Stop Date: 09/04/16 Status: Discontinued Dilaudid 0.5 mg, Route: IVP, ONCE, Dosing Weight 68.182, kg, Priority: STAT, Start date: 09/03/16 18:18:00 LINING PRESSER, Stop date: 09/03/16 18:18:00 LINING PRESSER Start Date: 09/03/16 Stop Date: 09/03/16 Status: Completed Dilaudid 0.5 mg, Route: IVP, ONCE, Dosing Weight 68.182, kg, Priority: STAT, Start date: 09/03/16 20:45:00 LINING PRESSER, Stop date: 09/03/16 20:45:00 LINING PRESSER Start Date: 09/03/16 Stop Date: 09/03/16 Status: Completed DULoxetine 30 mg, 1 cap, Route: PO, Drug form: DRC, BID, Dosing Weight 68.182, kg, Start da te: 09/04/16 9:00:00 LINING PRESSER, Duration: 30 day, Stop date: 10/03/16 17:00:00 LINING PRESSER Notes: (Same as: Cymbalta) (Do Not Crush) Start Date: 09/04/16 Stop Date: 09/04/16 Status: Discontinued ergocalciferol 50,000 IntlUnit, 1 cap, Route: PO, Drug form: CAP, Daily, Dosing Weight 68.182, kg, Start date: 09/04/16 9:00:00 LINING PRESSER, Duration: 3 day, Stop date: 09/06/16 9:00: 00 LINING PRESSER Notes: (Same as: Vitamin D) "Do Not Crush" Start Date: 09/04/16 Stop Date: 09/04/16 Status: Discontinued FLUoxetine 20 mg oral capsule 20 mg=1 cap, PO, Daily, 0 Refill(s) Start Date: 09/03/16 Stop Date: 09/04/16 Status: Discontinued hydrALAZINE 10 mg, 0.5 mL, Route: IV, Drug form: INJ, Q4H, Dosing Weight 68.182, kg, PRN Hyp ertension, Start date: 09/03/16 22:16:00 LINING PRESSER, Duration: 30 day, Stop date: 10/03 22:15:00 LINING PRESSER Notes: (Same as: Apresoline)Push over 5 minutes Start Date: 09/03/16 Stop Date: 09/04/16 Status: Discontinued influenza virus vaccine, inactivated 0.5 mL, Route: IM, Drug Form: SUSP, Daily, Start date: 09/04/16 9:00:00 LINING PRESSER, Dur ation: 1 doses or times, Stop date: 09/04/16 9:00:00 LINING PRESSER Notes: (Same as: Fluzone Quadrivalent, Fluarix Quadrivalent)For 3 years of age a nd older (0.5 mL IM)Shake well before use Start Date: 09/04/16 Stop Date: 09/04/16 Status: Completed lisinopril 10 mg, 2 tab, Route: PO, Drug form: TAB, Daily, Dosing Weight 68.182, kg, Start date: 09/04/16 9:00:00 LINING PRESSER, Duration: 30 day, Stop date: 10/03/16 9:00:00 LINING PRESSER Notes: (Same as: Prinivil, Zestril) Start Date: 09/04/16 Stop Date: 09/04/16 Status: Discontinued metoprolol 5 mg/5 ml INJ 5 mg, 5 mL, Route: IV, Drug form: INJ, Q2H, Dosing Weight 68.182, kg, PRN Tachyc ardia, Start date: 09/03/16 22:16:00 LINING PRESSER, Duration: 30 day, Stop date: 10/03/16 22:15:00 LINING PRESSER Notes: (Same as: Lopressor)Push over 2 minutes Start Date: 09/03/16 Stop Date: 09/04/16 Status: Discontinued metoprolol tartrate 25 mg, 1 tab, Route: PO, Drug form: TAB, BID, Dosing Weight 68.182, kg, Start da te: 09/04/16 9:00:00 LINING PRESSER, Duration: 30 day, Stop date: 10/03/16 21:00:00 LINING PRESSER Notes: (Same as: Lopressor) Start Date: 09/04/16 Stop Date: 09/04/16 Status: Discontinued morphine Sulfate 4 mg, 2 mL, Route: IVP, Drug form: INJ, Q2H, Dosing Weight 68.182, kg, PRN Pain Score 7-10, Start date: 09/03/16 22:01:00 LINING PRESSER, Duration: 30 day, Stop date: 09/08 04/22 22:00:00 LINING PRESSER Notes: (Same as:MORPhine Sulfate) Start Date: 09/03/16 Stop Date: 09/04/16 Status: Discontinued morphine Sulfate 2 mg, 1 mL, Route: IVP, Drug form: INJ, Q2H, Dosing Weight 68.182, kg, PRN Pain Score 4-6, Start date: 09/03/16 22:01:00 LINING PRESSER, Duration: 30 day, Stop date: 10/03 22:00:00 LINING PRESSER Notes: (Same as:MORPhine Sulfate) Start Date: 09/03/16 Stop Date: 09/04/16 Status: Discontinued morphine Sulfate 2 mg, 1 mL, Route: IVP, Drug form: INJ, Q2H, Dosing Weight 68.182, kg, PRN Chest Pain, Start date: 09/03/16 22:16:00 LINING PRESSER, Duration: 30 day, Stop date: 10/03/16 22:15:00 LINING PRESSER Notes: (Same as:MORPhine Sulfate) Start Date: 09/03/16 Stop Date: 09/04/16 Status: Discontinued nitroglycerin 0.4 mg sublingual tablet 0.4 mg, 1 tab, Route: SL, Drug form: TAB, Q5Min, PRN Chest Pain, Start date: 23:20:00 LINING PRESSER, Duration: 30 day, Stop date: 10/03/16 23:19:00 LINING PRESSER Notes: (Same as:Nitroquick, Nitrostat)"Do Not Crush" Sublingual tablet Start Date: 09/03/16 Stop Date: 09/04/16 Status: Discontinued nitroglycerin SL Tab 0.4 mg, 1 tab, Route: SL, Drug form: TAB, Q5Min, Dosing Weight 68.182, kg, PRN C hest Pain, Start date: 09/03/16 22:01:00 LINING PRESSER, Duration: 3 doses or times, Stop d ate: Limited # of times Notes: (Same as:Nitroquick, Nitrostat)"Do Not Crush" Sublingual tablet Start Date: 09/03/16 Stop Date: 09/03/16 Status: Deleted Nitrostat 0.4 mg sublingual tablet 0.4 mg, 1 tab, Route: SL, Drug form: TAB, Q5Min, Dosing Weight 68.182, kg, PRN C hest Pain, Start date: 09/03/16 22:16:00 LINING PRESSER, Duration: 3 doses or times, Stop d ate: Limited # of times Notes: (Same as:Nitroquick, Nitrostat)"Do Not Crush" Sublingual tablet Start Date: 09/03/16 Stop Date: 09/04/16 Status: Discontinued ondansetron 4 mg, 1 tab, Route: PO, Drug form: TAB, Q8H, Dosing Weight 68.182, kg, PRN Nause a & Vomiting, Start date: 09/03/16 22:01:00 LINING PRESSER, Duration: 30 day, Stop date: 10/03/16 22:00:00 LINING PRESSER Notes: (Same as: Zofran) Start Date: 09/03/16 Stop Date: 09/04/16 Status: Discontinued pneumococcal 23-valent vaccine 0.5 mL, Route: IM, Drug Form: INJ, Daily, Start date: 09/04/16 9:00:00 LINING PRESSER, Dura tion: 1 doses or times, Stop date: 09/04/16 9:00:00 LINING PRESSER Notes: (Same as: Pneumovax 23) Refrigerate Start Date: 09/04/16 Stop Date: 09/04/16 Status: Completed potassium chloride 20 mEq oral tablet, extended release 40 mEq, 2 tab, Route: PO, Drug form: ERTAB, ONCE, Dosing Weight 68.182, kg, Prio rity: STAT, Start date: 09/03/16 21:19:00 LINING PRESSER, Stop date: 09/03/16 21:19:00 LINING PRESSER Notes: (Same as: K-Dur 20)"Do Not Crush" With food and full glass of water Start Date: 09/03/16 Stop Date: 09/03/16 Status: Completed potassium chloride 20 mEq oral tablet, extended release 20 mEq, 1 tab, Route: PO, Drug form: ERTAB, Daily, Dosing Weight 68.182, kg, Sta rt date: 09/04/16 9:00:00 LINING PRESSER, Duration: 30 day, Stop date: 10/03/16 9:00:00 LINING PRESSER Notes: (Same as: K-Dur 20)"Do Not Crush" With food and full glass of water Start Date: 09/04/16 Stop Date: 09/04/16 Status: Discontinued Saline Flush 0.9% 10 ml, Route: IVP, Drug Form: INJ, Dosing Weight 68.182, kg, Q12H, Start date: 11/04/15 9:00:00 LINING PRESSER, Duration: 30 day, Stop date: 10/03/16 21:00:00 LINING PRESSER Notes: (Same as: BD Posiflush) Start Date: 09/04/16 Stop Date: 09/04/16 Status: Discontinued Saline Flush 0.9% 10 ml, Route: IVP, Drug Form: INJ, Dosing Weight 68.182, kg, PRN, PRN Line Flush , Start date: 09/03/16 22:01:00 LINING PRESSER, Duration: 30 day, Stop date: 10/03/16 22:00 :00 LINING PRESSER Notes: (Same as: BD Posiflush) Start Date: 09/03/16 Stop Date: 09/04/16 Status: Discontinued Saline Flush 0.9% 10 mL, Route: IVP, Drug Form: INJ, Dosing Weight 79.545, kg, PRN, PRN Line Flush , Start date: 09/03/16 16:44:00 LINING PRESSER, Duration: 30 day, Stop date: 10/03/16 16:43 :00 LINING PRESSER Notes: (Same as: BD Posiflush) Start Date: 09/03/16 Stop Date: 09/03/16 Status: Discontinued simvastatin 20 mg, 1 tab, Route: PO, Drug form: TAB, Bedtime, Dosing Weight 68.182, kg, Star t date: 09/04/16 21:00:00 LINING PRESSER, Duration: 30 day, Stop date: 10/03/16 21:00:00 CS T Notes: (Same as: Zocor) Start Date: 09/04/16 Stop Date: 09/04/16 Status: Canceled sodium chloride 0.9% 1000 ml INJ 1,000 mL 1,000 mL, Rate: 50 ml/hr, Infuse over: 20 hr, Route: IV, Dosing Weight 68.182 kg , Total Volume: 1,000, Start date: 09/03/16 22:01:00 LINING PRESSER, Stop date: 10/03/16 22 :00:00 LINING PRESSER Start Date: 09/03/16 Stop Date: 09/04/16 Status: Discontinued temazepam 15 mg, 1 cap, Route: PO, Drug form: CAP, Bedtime, Dosing Weight 68.182, kg, PRN Insomnia, Start date: 09/03/16 22:01:00 LINING PRESSER, Duration: 30 day, Stop date: 22:00:00 LINING PRESSER Notes: (Same As: Restoril) Start Date: 09/03/16 Stop Date: 09/04/16 Status: Discontinued tramadol 50 mg oral tablet 50 mg, 1 tab, Route: PO, Drug form: TAB, Q6H, Dosing Weight 68.182, kg, PRN Pain Score 7-10, Start date: 09/03/16 22:19:00 LINING PRESSER, Duration: 30 day, Stop date: 22:18:00 LINING PRESSER Notes: Not to exceed 400mg/day. (Same As: Ultram) Start Date: 09/03/16 Stop Date: 09/04/16 Status: Discontinued tramadol 50 mg oral tablet 50 mg=1 tab, PO, Q6H, PRN Pain Score 7-10, 0 Refill(s) Start Date: 09/03/16 Status: Ordered trazodone 50 mg oral tablet 50 mg=1 tab, PO, Bedtime, PRN Insomnia, 0 Refill(s) Start Date: 09/03/16 Status: Ordered trazodone 50 mg oral tablet 50 mg, 1 tab, Route: PO, Drug form: TAB, Bedtime, Dosing Weight 68.182, kg, PRN Insomnia, Start date: 09/03/16 22:19:00 LINING PRESSER, Duration: 30 day, Stop date: 22:18:00 LINING PRESSER Notes: (Same As: Earnestel) Start Date: 09/03/16 Stop Date: 09/04/16 Status: Discontinued Xanax 0.5 mg oral tablet 0.5 mg, 1 tab, Route: PO, Drug form: TAB, ONCE, Dosing Weight 68.182, kg, Priori ty: STAT, Start date: 09/03/16 22:10:00 LINING PRESSER, Stop date: 09/03/16 22:10:00 LINING PRESSER Notes: With food or milk(Same as: Xanax) Start Date: 09/03/16 Stop Date: 09/03/16 Status: Ordered Zofran 8 mg, Route: IVP, Drug form: INJ, ONCE, Dosing Weight 68.182, kg, Priority: STAT , Start date: 09/03/16 18:18:00 LINING PRESSER, Stop date: 09/03/16 18:18:00 LINING PRESSER Start Date: 09/03/16 Stop Date: 09/03/16 Status: Completed Results ELECTROLYTES 1 2 3 Most recent to oldest [Reference Range]: 140 mEq/L (09/03/16 5:45 PM) Sodium Lvl [135-145 mEq/L] 3.0 mEq/L 1 *CRIT* (09/03/16 5:45 PM) Potassium Lvl [3.5-5.1 mEq/L] 104 mEq/L (09/03/16 5:45 PM) Chloride Lvl [95-109 mEq/L] 26 mEq/L (09/03/16 5:45 PM) CO2 [24-32 mEq/L] 13.0 mEq/L (09/03/16 5:45 PM) AGAP [10.0-20.0 mEq/L] 1Result Comment: Critical Result(s) called to aster at 09/03/2016 18:29 by_sol. Read back OK. CHEM PANEL 1 2 3 Most recent to oldest [Reference Range]: 0.80 mg/dL (09/03/16 5:45 PM) Creatinine Lvl [0.50-1.40 mg/dL] 82 mL/min/1.73m2 1 *NA* (09/03/16 5:45 PM) eGFR 7 mg/dL (09/03/16 5:45 PM) BUN [7-22 mg/dL] 9 (09/03/16 5:45 PM) B/C Ratio [6-25] 94 mg/dL (09/03/16 5:45 PM) Glucose Lvl [70-99 mg/dL] 4.1 mg/dL (09/04/16 3:17 AM) Uric Acid [2.5-7.0 mg/dL] 6.7 g/dL (09/04/16 3:17 AM) 7.6 g/dL (09/03/16 5:45 PM) Total Protein [6.4-8.4 g/dL] 3.1 g/dL *LOW* (09/04/16 3:17 AM) 3.6 g/dL (09/03/16 5:45 PM) Albumin Lvl [3.5-5.0 g/dL] 3.6 g/dL (09/04/16 3:17 AM) 4.0 g/dL (09/03/16 5:45 PM) Globulin [2.7-4.2 g/dL] 0.9 (09/04/16 3:17 AM) 0.9 (09/03/16 5:45 PM) A/G Ratio [0.7-1.6] 8.7 mg/dL (09/03/16 5:45 PM) Calcium Lvl [8.5-10.5 mg/dL] 4.0 mg/dL (09/03/16 10:40 PM) Phosphorus [2.5-4.5 mg/dL] 2.4 mg/dL (09/03/16 10:40 PM) Magnesium Lvl [1.8-2.4 mg/dL] 181 unit/L *HI* (09/04/16 3:17 AM) 29 unit/L (09/03/16 5:45 PM) ALT [0-65 unit/L] 311 unit/L *HI* (09/04/16 3:17 AM) 53 unit/L *HI* (09/03/16 5:45 PM) AST [0-37 unit/L] 162 unit/L *HI* (09/04/16 3:17 AM) 129 unit/L (09/03/16 5:45 PM) Alk Phos [39-136 unit/L] 0.5 mg/dL (09/04/16 3:17 AM) 0.6 mg/dL (09/03/16 5:45 PM) Bili Total [0.2-1.3 mg/dL] 0.3 mg/dL (09/04/16 3:17 AM) Bili Direct [0.0-0.3 mg/dL] 0.2 mg/dL (09/04/16 3:17 AM) Bili Indirect [0.0-1.0 mg/dL] 54 pg/mL 2 *NA* (09/04/16 3:17 AM) Vitamin D 1,25 (OH)2 Total <10 pg/mL *NA* (09/04/16 3:17 AM) Vitamin D2 1,25 (OH)2 44 pg/mL 3 *NA* (09/04/16 3:17 AM) Vitamin D3 1,25 (OH)2 1Result Comment: The eGFR is calculated using the [...] from the National Kidney Disease Education Program ( NKDEP) which additionally recommends that when the eGFR is used in patients with extremes of body mass index for purposes of drug dosing, the eGFR should be mul tiplied by the estimated BMI. 2Result Comment: Reference Range: Adults: 21 - 65 3Result Comment: Performed At: [facility] [address], [place] [id number] Cong Kincaid MD Ph:[phone] CARDIAC ENZYMES 1 2 3 Most recent to oldest [Reference Range]: 61 unit/L (09/04/16 3:17 AM) 96 unit/L (09/03/16 10:40 PM) 69 unit/L (09/03/16 5:45 PM) Total CK [12-191 unit/L] 1.4 ng/mL (09/03/16 10:40 PM) 1.8 ng/mL (09/03/16 5:45 PM) CK MB [0.5-3.6 ng/mL] 1.5 (09/03/16 10:40 PM) 2.6 *HI* (09/03/16 5:45 PM) CK MB Index [0.0-2.5] <0.02 ng/mL (09/04/16 3:17 AM) <0.02 ng/mL (09/03/16 10:40 PM) <0.02 ng/mL (09/03/16 5:45 PM) Troponin-I [0.00-0.40 ng/mL] 59 pg/mL (09/04/16 3:17 AM) BNP [<=100 pg/mL] LIPIDS 1 2 3 Most recent to oldest [Reference Range]: 3.75 *LOW* (09/04/16 3:17 AM) 4.35 (09/03/16 10:40 PM) CHD Risk [3.90-5.80] 135 mg/dL (09/04/16 3:17 AM) 148 mg/dL (09/03/16 10:40 PM) Chol [<=199 mg/dL] 78 mg/dL (09/04/16 3:17 AM) 97 mg/dL (09/03/16 10:40 PM) Trig [<=149 mg/dL] 36 mg/dL *LOW* (09/04/16 3:17 AM) 34 mg/dL *LOW* (09/03/16 10:40 PM) HDL [>=61 mg/dL] 83 mg/dL (09/04/16 3:17 AM) 95 mg/dL (09/03/16 10:40 PM) LDL (Calculated) [<=99 mg/dL] 16 *NA* (09/04/16 3:17 AM) 19 *NA* (09/03/16 10:40 PM) VLDL SPECIAL CHEMISTRY 1 2 3 Most recent to oldest [Reference Range]: 5.9 % *HI* (09/04/16 3:17 AM) Hgb A1C [<=5.6 %] URINE AND STOOL 1 2 3 Most recent to oldest [Reference Range]: Clear (09/03/16 4:53 PM) UA Turbidity [Clear] Colorless *NA* (09/03/16 4:53 PM) UA Color 6.0 (09/03/16 4:53 PM) UA pH [5.0-8.0] 1.003 (09/03/16 4:53 PM) UA Spec Grav [<=1.030] Negative mg/dL *NA* (09/03/16 4:53 PM) UA Glucose [Negative mg/dL] Small *ABN* (09/03/16 4:53 PM) UA Blood [Negative] Negative mg/dL *NA* (09/03/16 4:53 PM) UA Ketones [Negative mg/dL] Negative mg/dL (09/03/16 4:53 PM) UA Protein [Negative mg/dL] <=1.0 mg/dL *NA* (09/03/16 4:53 PM) UA Urobilinogen [0.1-1.0 mg/dL] Negative *NA* (09/03/16 4:53 PM) UA Bili [Negative] Negative (09/03/16 4:53 PM) UA Leuk Est [Negative] Negative (09/03/16 4:53 PM) UA Nitrite [Negative] <1 /HPF (09/03/16 4:53 PM) UA WBC [0-5 /HPF] 1 /HPF (09/03/16 4:53 PM) UA RBC [0-2 /HPF] Occasional /LPF *NA* (09/03/16 4:53 PM) UA Sq Epi [Few /LPF] IMMUNOLOGY 1 2 3 Most recent to oldest [Reference Range]: 26.9 uMol/L *HI* (09/04/16 3:17 AM) Homocyst Tot [3.7-13.9 uMol/L] HEMATOLOGY 1 2 3 Most recent to oldest [Reference Range]: 18.1 K/CMM *HI* (09/03/16 5:45 PM) WBC [3.7-10.4 K/CMM] 4.51 M/CMM (09/03/16 5:45 PM) RBC [4.20-5.40 M/CMM] 11.6 g/dL *LOW* (09/03/16 5:45 PM) Hgb [12.0-16.0 g/dL] 35.9 % *LOW* (09/03/16 5:45 PM) Hct [36.0-48.0 %] 79.7 fL *LOW* (09/03/16 5:45 PM) MCV [80.0-98.0 fL] 25.8 pg *LOW* (09/03/16 5:45 PM) MCH [27.0-31.0 pg] 32.3 g/dL (09/03/16 5:45 PM) MCHC [32.0-36.0 g/dL] 16.9 % *HI* (09/03/16 5:45 PM) RDW [11.5-14.5 %] 314 K/CMM (09/03/16 5:45 PM) Platelet [133-450 K/CMM] 8.1 fL (09/03/16 5:45 PM) MPV [7.4-10.4 fL] 37.2 % *LOW* (09/03/16 5:45 PM) Segs [45.0-75.0 %] 14.8 % *LOW* (09/03/16 5:45 PM) Lymphocytes [20.0-40.0 %] 2.7 % (09/03/16 5:45 PM) Monocytes [2.0-12.0 %] 44.0 % *HI* (09/03/16 5:45 PM) Eosinophils [0.0-4.0 %] 1.3 % *HI* (09/03/16 5:45 PM) Basophils [0.0-1.0 %] 6.7 K/CMM (09/03/16 5:45 PM) Segs-Bands # [1.5-8.1 K/CMM] 2.7 K/CMM (09/03/16 5:45 PM) Lymphocytes # [1.0-5.5 K/CMM] 0.5 K/CMM (09/03/16 5:45 PM) Monocytes # [0.0-0.8 K/CMM] 8.0 K/CMM *HI* (09/03/16 5:45 PM) Eosinophils # [0.0-0.5 K/CMM] 0.2 K/CMM (09/03/16 5:45 PM) Basophils # [0.0-0.2 K/CMM] Normal (09/03/16 5:45 PM) RBC Morph Normal (09/03/16 5:45 PM) Plt Morph 8 mm/hr (09/04/16 3:17 AM) Sed Rate [0-20 mm/hr] 13.1 seconds (09/03/16 5:45 PM) PT [12.0-14.7 seconds] 0.97 (09/03/16 5:45 PM) INR [0.85-1.17] 28.9 seconds (09/03/16 5:45 PM) PTT [22.9-35.8 seconds] Immunizations Not Given Vaccine Date Status Refusal Reason influenza virus vaccine, inactivated 09/04/16 Not Given Patient Refuses pneumococcal 23-valent vaccine 09/04/16 Not Given Patient Refuses Procedures Procedure Date Related Diagnosis Body Site Laparoscopic assisted vaginal hysterectomy with repair of cystocele Open heart surgery Open reduction of dislocation of hand Removal of gallbladder Social History Social History Type Response Substance Abuse Use: None. IV drug use: [...] to obtain; Reg Smoking Cessation Counseling No Assessment and Plan No data available for this section
--- OUTSIDE RECORDS SUMMARY | 2019-06-05 18:26 | XMS REPORT ---
Author Author [facility] Address Unknown Phone Unavailable Care Team Providers Care [employer]drinier [employer] Name Role Phone Unavailable Unavailable Payers Payer Name Policy Type Policy Number Effective Date Expiration Date Problems This patient has no known problems. Allergies, Adverse Reactions, Alerts Allergy Name Allergy Type Status Severity Reaction(s) Onset Date Inactive Date Treating Clinician Comments adhesive tape DA Active U 2017-10-21 00:00:00 Medications This patient has no known medications.
--- OUTSIDE RECORDS SUMMARY | 2019-06-05 18:26 | XMS REPORT | Summary of Care ---
Author Author [facility] Organization [facility] Address Unknown Phone Unavailable Encounter ADAMA Raman(BROOKLYNN) [id number] Date(s): 03/14/18 - 03/14/18 [facility] [address] [place] [address]- [phone] Discharge Disposition: Home or Self Care Attending Physician: Nathan Soriano MD Admitting Physician: Nathan Soriano MD Referring Physician: Nathan Soriano MD Vital Signs 1 2 3 Most recent to oldest [Reference Range]: 167.64 cm (03/13/18 10:32 AM) Height 110/68 mmHg (03/14/18 8:10 AM) 108/58 mmHg (03/14/18 7:55 AM) 69/54 mmHg *LOW* (03/14/18 7:41 AM) Blood Pressure [90-140/60-90 mmHg] 20 BRMIN (03/14/18 8:10 AM) 20 BRMIN (03/14/18 7:55 AM) 19 BRMIN (03/14/18 7:41 AM) Respiratory Rate [14-20 BRMIN] 77.273 kg (03/13/18 10:32 AM) Weight 27.5 m2 (03/13/18 10:32 AM) Body Mass Index Problem List Condition Effective Dates Status Health Status Informant Anxiety(Confirmed) Resolved BP+ - Resolved Hypertension(Confirm ed) FH: thoracic aortic Resolved aneurysm(Confirmed) H/O renal Resolved calculi(Confirmed) Hysterectomy(Confirm Resolved ed) Allergies, Adverse Reactions, Alerts Substance Reaction Severity Status NKDA Active Medications divalproex sodium 500 mg oral tablet, extended release(Depakote ER) 500 mg=1 tab, PO, BID, 0 Refill(s) Start Date: 03/13/18 Status: Ordered gabapentin 300 mg oral capsule 300 mg=1 cap, PO, TID, # 90 cap, 0 Refill(s) Start Date: 03/13/18 Status: Ordered ipratropium nasal 0.03% spray 2 spray, Each Affected Nostril, TID, # 30 ml, 0 Refill(s) Start Date: 03/13/18 Stop Date: 03/20/18 Status: Ordered Lyrica 50 mg oral capsule 50 mg=1 cap, PO, PRN, take every 6 hours as needed, 0 Refill(s) Start Date: 03/13/18 Status: Ordered [place] 10/325 oral tablet 1 tab, PO, Q6H, PRN for pain, # 24 tab, 0 Refill(s) Start Date: 03/13/18 Stop Date: 03/19/18 Status: Ordered Ventolin HFA 2 puff, INHALATION, PRN, every 4-6 hours as needed, 0 Refill(s) Start Date: 03/13/18 Status: Ordered Results No data available for this section Immunizations Not Given Vaccine Date Status Refusal Reason pneumococcal 23-valent vaccine 09/04/16 Not Given Patient Refuses influenza virus vaccine, inactivated 09/04/16 Not Given Patient Refuses Procedures Procedure Date Related Diagnosis Body Site Status Hemorrhoid operation Completed Laparoscopic assisted vaginal hysterectomy Completed with repair of cystocele Open heart surgery Completed Open reduction of dislocation of hand Completed Removal of gallbladder Completed Social History Social History Type Response Substance [...] Stopped at age: 1; entered on: 03/14/18 Assessment and Plan No data available for this section
--- OUTSIDE RECORDS SUMMARY | 2019-06-05 18:26 | XMS REPORT | Summary of Care ---
Author Author [facility] Outpatient Imaging [facility] Outpatient Imaging [facility] Address Unknown Phone Unavailable Encounter ADAMA Raman(FIN) [id number] Date(s): 03/07/18 - 03/07/18 [facility] [address] [facility], [address] [place] [phone] Discharge Disposition: Home or Self Care Attending Physician: Nathan Soriano MD Vital Signs No data available for this section Problem List Condition Effective Dates Status Health Status Informant Anxiety(Confirmed) Resolved BP+ - Resolved Hypertension(Confirm ed) Hysterectomy(Confirm Resolved ed) Allergies, Adverse Reactions, Alerts Substance Reaction Severity Status NKDA Active Medications No data available for this section Results No data available for this section [...] Stopped at age: 1; entered on: 06/21/17 Assessment and Plan No data available for this section
--- OUTSIDE RECORDS SUMMARY | 2019-06-05 18:26 | XMS REPORT | Summary of Care ---
Author Author [facility] Outpatient Imaging [facility] Outpatient Imaging [facility] Address Unknown Phone Unavailable Encounter ADAMA Raman(BROOKLYNN) [id number] Date(s): 12/12/16 - 12/12/16 [facility] Imaging [facility] [address] [facility], [address] [place] [phone] Discharge Disposition: Home or Self Care Attending Physician: Lamonte Lopez DO Vital Signs No data available for this [...]
--- OUTSIDE RECORDS SUMMARY | 2019-06-05 18:26 | XMS REPORT | Summary of Care ---
Author Author [facility] [place] Organization [facility] [place] Address Unknown Phone Unavailable Encounter ADAMA Raman(BROOKLYNN) [id number] Date(s): 03/12/17 - 03/12/17 [facility] [place] [address] [phone] Discharge Disposition: Home or Self Care Attending [...]
--- OUTSIDE RECORDS SUMMARY | 2019-06-05 18:26 | XMS REPORT | Summary of Care ---
Author Author [facility] Outpatient Imaging [facility] Outpatient [facility] Address Unknown Phone Unavailable Encounter ADAMA Raman(BROOKLYNN) [id number] Date(s): 07/13/17 - 07/13/17 [facility] Imaging [facility] [address] [facility], [address] [place] [address] [phone] Discharge Disposition: Home or Self Care Attending Physician: Cristobal Gonsales MD Vital Signs No data available for [...] Procedures Procedure Date Related Diagnosis Body Site Hemorrhoid operation Laparoscopic assisted vaginal hysterectomy with repair of [...]
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
--- OUTSIDE RECORDS SUMMARY | 2019-06-05 18:26 | XMS REPORT | Summary of Care ---
Author Author [facility] Organization [facility] Address Unknown Phone Unavailable Encounter AADMA Raman(BROOKLYNN) [id number] Date(s): 06/22/17 - 06/22/17 [facility] [address] [place] [address]- Discharge Disposition: Home or Self Care Attending Physician: Nathan Soriano MD Referring Physician: Nathan Soriano MD Vital Signs 1 2 3 Most recent to oldest [Reference Range]: 167.64 cm (06/20/17 12:58 PM) Height 118/61 mmHg (06/22/17 12:20 PM) 118/58 mmHg (06/22/17 12:05 PM) 118/61 mmHg (06/22/17 11:48 AM) Blood Pressure [90-140/60-90 mmHg] 16 BRMIN (06/22/17 12:20 PM) 16 BRMIN (06/22/17 12:05 PM) 18 BRMIN (06/22/17 11:48 AM) Respiratory Rate [14-20 BRMIN] 70.909 kg (06/20/17 12:58 PM) Weight 25.23 m2 (06/20/17 12:58 PM) Body Mass Index Problem List Condition Effective Dates Status Health Status Informant Anxiety(Confirmed) Resolved BP+ - Resolved Hypertension(Confirm ed) Hysterectomy(Confirm Resolved ed) Allergies, Adverse Reactions, Alerts Substance Reaction Severity Status NKDA Active Medications divalproex sodium 250 mg oral enteric coated tablet (Depakote) 250 mg=1 tab, PO, BID, # 60 tab, 1 Refill(s) Start Date: 06/21/17 Status: Ordered folic acid 1 mg oral tablet 1 mg=1 tab, PO, Daily, # 30 tab, 0 Refill(s) Start Date: 06/21/17 Status: Ordered gabapentin 600 mg oral tablet 600 mg=1 tab, PO, TID, # 270 tab, 0 Refill(s) Start Date: 06/21/17 Status: Ordered meloxicam 7.5 mg oral tablet 7.5 mg=1 tab, PO, PRN, 0 Refill(s) Start Date: 06/21/17 Status: Ordered Metoprolol Tartrate 25 mg oral tablet 25 mg=1 tab, PO, BID, # 60 tab, 0 Refill(s) Start Date: 06/22/17 Status: Ordered omeprazole 40 mg oral delayed release capsule 40 mg=1 cap, PO, Daily, # 30 cap, 0 Refill(s) Start Date: 06/21/17 Status: Ordered QUEtiapine 100 mg oral tablet 100 mg=1 tab, PO, Bedtime, # 30 tab, 1 Refill(s) Start Date: 06/21/17 Stop Date: 07/21/17 Status: Ordered sertraline 100 mg oral tablet 100 mg=1 tab, PO, Daily, # 30 tab, 0 Refill(s) Start Date: 06/21/17 Status: Ordered Sodium Chloride 0.9% IV 1000 mL 1,000 mL, Rate: 25 ml/hr, Infuse over: 40 hr, Route: IV, Dosing Weight 70.909 kg , Total Volume: 1,000, Start date: 06/22/17 10:09:00 CDT, Duration: 30 day, Stop date: 07/22/17 10:08:00 CDT Start Date: 06/22/17 Stop Date: 06/22/17 Status: Discontinued Results No data available for this section [...]
--- OUTSIDE RECORDS SUMMARY | 2019-06-05 18:26 | XMS REPORT | Summary of Care ---
Author Author [facility] Outpatient Imaging [facility] Address Unknown Phone Unavailable Encounter ADAMA Raman(BROOKLYNN) [id number] Date(s): 01/22/17 - 01/22/17 [facility] [address] [facility], [address] [place] [phone] Discharge Disposition: Home or Self Care Attending [...]
[2019-06-05] MEDS ORDERED: SODIUM CHLORIDE 0.9% 1000ML 1,000 ML IV STA (18:51)
--- OUTSIDE RECORDS SUMMARY | 2019-06-05 19:13 | XMS REPORT | Continuity of Care Document ---
Author Author ACE Organization ACE Address Unknown Phone Unavailable Care Team Providers Care Panel Instrument Repairer Name Role Phone ACE Unavailable Unavailable Problems Problem Status Onset Date Classification Date Reported Comments Source COLON Active 03/12/2018 [facility] R10.9 - UNSPECIFIED ABDOMINAL PAIN Active 03/07/2018 [facility] Z13.820 - ENCOUNTER FOR SCREENING FOR OS Active 07/18/2017 ELIEL Brock UNK Active 06/15/2017 [facility] M25.511 - PAIN IN RIGHT SHOULDER [facility]A PECTORIS, ANXIETY ATTACK, HYPERTE Active 09/03/2016 [facility] CHEST PAIN/ARM PAIN Active 09/03/2016 [facility] Anxiety (finding) Resolved Problem 03/17/2018 ELIEL Brock,[facility] Hypertensive disorder, systemic arterial (disorder) Resolved Problem 03/17/2018 ELIEL Brock,[facility] Family history of aneurysm of thoracic aorta (situation) Resolved Problem 03/17/2018 [facility] History of calculus of kidney (situation) Resolved Problem 03/17/2018 [facility] Hysterectomy (procedure) Resolved Problem 03/17/2018 ELIEL Brock,[facility] ANGINA PECTORIS, UNSPECIFIED Active [facility] PANIC DISORDER WITHOUT AGORAPHOBIA Active [facility] HYPERTENSIVE URGENCY Active [facility] Medications Medication Details Route Status Patient Instructions Ordering Provider Order Date Source Ventolin HFA 2 puff, INHALATION, PRN, every 4-6 hours as needed, 0 Refill(s) Active 03/13/2018 [facility] pregabalin 50 MG Oral Capsule [Lyrica] 50 mg=1 cap, PO, PRN, take every 6 hours as needed, 0 Refill(s) Active 03/13/2018 [facility] Ipratropium [place] 0.021 MG/ACTUAT Metered Dose Nasal [place] 2 spray, Each Affected Nostril, TID, # 30 ml, 0 Refill(s) Active 03/13/2018 [facility] Acetaminophen 325 MG / Hydrocodone Bitartrate 10 MG Oral Tablet [[place] 10/325] 1 tab, PO, Q6H, PRN for pain, # 24 tab, 0 Refill(s) Active 03/13/2018 [facility] gabapentin 300 MG Oral Capsule 300 mg=1 cap, PO, TID, # 90 cap, 0 Refill(s) Active 03/13/2018 [facility] 24 HR Divalproex Sodium 500 MG Extended Release Tablet 500 mg=1 tab, PO, BID, 0 Refill(s) Active 03/13/2018 [facility] Metoprolol Tartrate 25 mg oral tablet 25 mg=1 tab, PO, BID, # 60 tab, 0 Refill(s) Active 06/22/2017 [facility] Sodium Chloride 0.9% IV 1000 mL 1,000 mL, Rate: 25 ml/hr, Infuse over: 40 hr, Route: IV, Dosing Weight 70.909 kg, Total Volume: 1,000, Start date: 06/22/17 10:09:00 CDT, Duration: 30 day, Stop date: 07/22/17 10:08:00 CDT Inactive 06/22/2017 [facility] omeprazole 40 mg oral delayed release capsule 40 mg=1 cap, PO, Daily, # 30 cap, 0 Refill(s) Active 06/21/2017 [facility] sertraline 100 mg oral tablet 100 mg=1 tab, PO, Daily, # 30 tab, 0 Refill(s) Active 06/21/2017 [facility] divalproex sodium 250 mg oral enteric coated tablet (Depakote) 250 mg=1 tab, PO, BID, # 60 tab, 1 Refill(s) Active 06/21/2017 [facility] meloxicam 7.5 mg oral tablet 7.5 mg=1 tab, PO, PRN, 0 Refill(s) Active 06/21/2017 [facility] Folic Acid 1 MG Oral Tablet 1 mg=1 tab, PO, Daily, # 30 tab, 0 Refill(s) Active 06/21/2017 [facility] QUEtiapine 100 mg oral tablet 100 mg=1 tab, PO, Bedtime, # 30 tab, 1 Refill(s) Active 06/21/2017 [facility] gabapentin 600 MG Oral Tablet 600 mg=1 tab, PO, TID, # 270 tab, 0 Refill(s) Active 06/21/2017 [facility] Buspirone 7.5 mg, 1.5 tab, Route: PO, Drug form: TAB, Bedtime, Dosing Weight 68.182, kg, Start date: 09/04/16 21:00:00 COMMUNICATIONS SENIOR ASSOCIATE, Duration: 30 day, Stop date: 10/03/16 21:00:00 CSTNotes: (Same As: BuSpar) Inactive 09/05/2016 [facility] Simvastatin 20 mg, 1 tab, Route: PO, Drug form: TAB, Bedtime, Dosing Weight 68.182, kg, Start date: 09/04/16 21:00:00 COMMUNICATIONS SENIOR ASSOCIATE, Duration: 30 day, Stop date: 10/03/16 21:00:00 CSTNotes: (Same as: Zocor) Inactive 09/05/2016 [facility] citalopram 20 mg oral tablet 20 mg=1 tab, PO, Daily, # 30 tab, 0 Refill(s), Pharmacy: [facility]/pharmacy #[id number] Active 09/04/2016 [facility] clonazePAM 0.5 mg oral tablet 0.5 mg=1 tab, PO, BID, # 30 tab, 0 Refill(s) Active 09/04/2016 [facility] Lisinopril 10 mg, 2 tab, Route: PO, Drug form: TAB, Daily, Dosing Weight 68.182, kg, Start date: 09/04/16 9:00:00 COMMUNICATIONS SENIOR ASSOCIATE, Duration: 30 day, Stop date: 10/03/16 9:00:00 CSTNotes: (Same as: Prinivil, Zestril) Inactive 09/04/2016 [facility] Saline Flush 0.9% 10 ml, Route: IVP, Drug Form: INJ, Dosing Weight 68.182, kg, Q12H, Start date: 09/04/16 9:00:00 COMMUNICATIONS SENIOR ASSOCIATE, Duration: 30 day, Stop date: 10/03/16 21:00:00 CSTNotes: (Same as: BD Posiflush) Inactive 09/04/2016 [facility] duloxetine 30 mg, 1 cap, Route: PO, Drug form: DRC, BID, Dosing Weight 68.182, kg, Start date: 09/04/16 9:00:00 COMMUNICATIONS SENIOR ASSOCIATE, Duration: 30 day, Stop date: 10/03/16 17:00:00 CSTNotes: (Same as: Cymbalta) (Do Not Crush) Inactive 09/04/2016 [facility] Citalopram 10 mg, 1 tab, Route: PO, Drug form: TAB, Daily, Dosing Weight 68.182, kg, Start date: 09/04/16 9:00:00 COMMUNICATIONS SENIOR ASSOCIATE, Duration: 30 day, Stop date: 10/03/16 9:00:00 COMMUNICATIONS SENIOR ASSOCIATE Inactive 09/04/2016 [facility] pneumococcal capsular polysaccharide type 1 vaccine / pneumococcal capsular polysaccharide type 10A vaccine / pneumococcal capsular polysaccharide type 11A vaccine / pneumococcal capsular polysaccharide type 12F vaccine / pneumococcal capsular polysacchar 0.5 mL, Route: IM, Drug Form: INJ, Daily, Start date: 09/04/16 9:00:00 COMMUNICATIONS SENIOR ASSOCIATE, Duration: 1 doses or times, Stop date: 09/04/16 9:00:00 CSTNotes: (Same as: Pneumovax 23) Refrigerate Inactive 09/04/2016 [facility] influenza virus vaccine, inactivated 0.5 mL, Route: IM, Drug Form: SUSP, Daily, Start date: 09/04/16 9:00:00 COMMUNICATIONS SENIOR ASSOCIATE, Duration: 1 doses or times, Stop date: 09/04/16 9:00:00 CSTNotes: (Same as: Fluzone Quadrivalent, Fluarix Quadrivalent) For 3 years of age and older (0.5 mL IM) Shake well before use Inactive 09/04/2016 [facility] metoprolol tartrate 25 mg, 1 tab, Route: PO, Drug form: TAB, BID, Dosing Weight 68.182, kg, Start date: 09/04/16 9:00:00 COMMUNICATIONS SENIOR ASSOCIATE, Duration: 30 day, Stop date: 10/03/16 21:00:00 CSTNotes: (Same as: Lopressor) Inactive 09/04/2016 [facility] potassium chloride 20 mEq oral tablet, extended release 20 mEq, 1 tab, Route: PO, Drug form: ERTAB, Daily, Dosing Weight 68.182, kg, Start date: 09/04/16 9:00:00 COMMUNICATIONS SENIOR ASSOCIATE, Duration: 30 day, Stop date: 10/03/16 9:00:00 CSTNotes: (Same as: K-Dur 20) "Do Not Crush" With food and full glass of water Inactive 09/04/2016 [facility] ergocalciferol 50,000 IntlUnit, 1 cap, Route: PO, Drug form: CAP, Daily, Dosing Weight 68.182, kg, Start date: 09/04/16 9:00:00 COMMUNICATIONS SENIOR ASSOCIATE, Duration: 3 day, Stop date: 09/06/16 9:00:00 CSTNotes: (Same as: Vitamin D) "Do Not Crush" Inactive 09/04/2016 [facility] atropine 0.5 mg, 5 mL, Route: IVP, Drug form: INJ, PRN, PRN Bradycardia, Start date: 09/03/16 23:20:00 COMMUNICATIONS SENIOR ASSOCIATE, Duration: 30 day, Stop date: 10/03/16 23:19:00 COMMUNICATIONS SENIOR ASSOCIATE No Longer Active 09/04/2016 [facility] nitroglycerin 0.4 mg sublingual tablet 0.4 mg, 1 tab, Route: SL, Drug form: TAB, Q5Min, PRN Chest Pain, Start date: 09/03/16 23:20:00 COMMUNICATIONS SENIOR ASSOCIATE, Duration: 30 day, Stop date: 10/03/16 23:19:00 CSTNotes: (Same as:Nitroquick, Nitrostat) "Do Not Crush" Sublingual tablet No Longer Active 09/04/2016 [facility] Trazodone Hydrochloride 50 MG Oral Tablet 50 mg, 1 tab, Route: PO, Drug form: TAB, Bedtime, Dosing Weight 68.182, kg, PRN Insomnia, Start date: 09/03/16 22:19:00 COMMUNICATIONS SENIOR ASSOCIATE, Duration: 30 day, Stop date: 10/03/16 22:18:00 CSTNotes: (Same As: Desyrel) No Longer Active 09/04/2016 [facility] tramadol hydrochloride 50 MG Oral Tablet 50 mg, 1 tab, Route: PO, Drug form: TAB, Q6H, Dosing Weight 68.182, kg, PRN Pain Score 7-10, Start date: 09/03/16 22:19:00 COMMUNICATIONS SENIOR ASSOCIATE, Duration: 30 day, Stop date: 10/03/16 22:18:00 CSTNotes: Not to exceed 400mg/day. (Same As: Ultram) No Longer Active 09/04/2016 [facility] Morphine 2 mg, 1 mL, Route: IVP, Drug form: INJ, Q2H, Dosing Weight 68.182, kg, PRN Chest Pain, Start date: 09/03/16 22:16:00 COMMUNICATIONS SENIOR ASSOCIATE, Duration: 30 day, Stop date: 10/03/16 22:15:00 CSTNotes: (Same as:MORPhine Sulfate) No Longer Active 09/04/2016 [facility] Hydralazine 10 mg, 0.5 mL, Route: IV, Drug form: INJ, Q4H, Dosing Weight 68.182, kg, PRN Hypertension, Start date: 09/03/16 22:16:00 COMMUNICATIONS SENIOR ASSOCIATE, Duration: 30 day, Stop date: 10/03/16 22:15:00 CSTNotes: (Same as: Apresoline) Push over 5 minutes No Longer Active 09/04/2016 [facility] Nitroglycerin 0.4 MG Sublingual Tablet [Nitrostat] 0.4 mg, 1 tab, Route: SL, Drug form: TAB, Q5Min, Dosing Weight 68.182, kg, PRN Chest Pain, Start date: 09/03/16 22:16:00 COMMUNICATIONS SENIOR ASSOCIATE, Duration: 3 doses or times, Stop date: Limited # of timesNotes: (Same as:Nitroquick, Nitrostat) "Do Not Crush" Sublingual tablet No Longer Active 09/04/2016 [facility] Metoprolol 5 mg, 5 mL, Route: IV, Drug form: INJ, Q2H, Dosing Weight 68.182, kg, PRN Tachycardia, Start date: 09/03/16 22:16:00 COMMUNICATIONS SENIOR ASSOCIATE, Duration: 30 day, Stop date: 10/03/16 22:15:00 CSTNotes: (Same as: Lopressor) Push over 2 minutes No Longer Active 09/04/2016 [facility] Aspirin 325 MG Oral Tablet 325 mg, 1 tab, Route: PO, Drug form: TAB, Daily, Dosing Weight 68.182, kg, Start date: 09/03/16 22:15:00 COMMUNICATIONS SENIOR ASSOCIATE, Duration: 30 day, Stop date: 10/03/16 9:00:00 CSTNotes: Take with food. No Longer Active 09/04/2016 [facility] Alprazolam 0.5 MG Oral Tablet [Xanax] 0.5 mg, 1 tab, Route: PO, Drug form: TAB, ONCE, Dosing Weight 68.182, kg, Priority: STAT, Start date: 09/03/16 22:10:00 COMMUNICATIONS SENIOR ASSOCIATE, Stop date: 09/03/16 22:10:00 CSTNotes: With food or milk (Same as: Xanax) Inactive 09/04/2016 [facility] Saline Flush 0.9% 10 ml, Route: IVP, Drug Form: INJ, Dosing Weight 68.182, kg, PRN, PRN Line Flush, Start date: 09/03/16 22:01:00 COMMUNICATIONS SENIOR ASSOCIATE, Duration: 30 day, Stop date: 10/03/16 22:00:00 CSTNotes: (Same as: BD Posiflush) No Longer Active 09/04/2016 [facility] Morphine 4 mg, 2 mL, Route: IVP, Drug form: INJ, Q2H, Dosing Weight 68.182, kg, PRN Pain Score 7-10, Start date: 09/03/16 22:01:00 COMMUNICATIONS SENIOR ASSOCIATE, Duration: 30 day, Stop date: 10/03/16 22:00:00 CSTNotes: (Same as:MORPhine Sulfate) No Longer Active 09/04/2016 [facility] Nitroglycerin 0.4 mg, 1 tab, Route: SL, Drug form: TAB, Q5Min, Dosing Weight 68.182, kg, PRN Chest Pain, Start date: 09/03/16 22:01:00 COMMUNICATIONS SENIOR ASSOCIATE, Duration: 3 doses or times, Stop date: Limited # of timesNotes: (Same as: Nitroquick, Nitrostat) "Do Not Crush" Sublingual tablet Inactive 09/04/2016 [facility] Ondansetron 4 mg, 1 tab, Route: PO, Drug form: TAB, Q8H, Dosing Weight 68.182, kg, PRN Nausea & Vomiting, Start date: 09/03/16 22:01:00 COMMUNICATIONS SENIOR ASSOCIATE, Duration: 30 day, Stop date: 10/03/16 22:00:00 CSTNotes: (Same as: Zofran) No Longer Active 09/04/2016 [facility] Temazepam 15 mg, 1 cap, Route: PO, Drug form: CAP, Bedtime, Dosing Weight 68.182, kg, PRN Insomnia, Start date: 09/03/16 22:01:00 COMMUNICATIONS SENIOR ASSOCIATE, Duration: 30 day, Stop date: 10/03/16 22:00:00 CSTNotes: (Same As: Restoril) No Longer Active 09/04/2016 [facility] Acetaminophen 650 mg, 2 tab, Route: PO, Drug form: TAB, Q4H, Dosing Weight 68.182, kg, PRN Headache 1-5, Start date: 09/03/16 22:01:00 COMMUNICATIONS SENIOR ASSOCIATE, Duration: 30 day, Stop date: 10/03/16 22:00:00 CSTNotes: Do not exceed 4 gm/day. (Same as: Tylenol) No Longer Active 09/04/2016 [facility] Sodium Chloride 0.154 MEQ/ML Injectable Solution 1,000 mL, Rate: 50 ml/hr, Infuse over: 20 hr, Route: IV, Dosing Weight 68.182 kg, Total Volume: 1,000, Start date: 09/03/16 22:01:00 COMMUNICATIONS SENIOR ASSOCIATE, Stop date: 10/03/16 22:00:00 COMMUNICATIONS SENIOR ASSOCIATE No Longer Active 09/04/2016 [facility] Trazodone Hydrochloride 50 MG Oral Tablet 50 mg=1 tab, PO, Bedtime, PRN Insomnia, 0 Refill(s) Active 09/04/2016 [facility] FLUoxetine 20 mg oral capsule 20 mg=1 cap, PO, Daily, 0 Refill(s) No Longer Active 09/04/2016 [facility] tramadol hydrochloride 50 MG Oral Tablet 50 mg=1 tab, PO, Q6H, PRN Pain Score 7-10, 0 Refill(s) Active 09/04/2016 [facility] cyclobenzaprine 10 mg oral tablet 10 mg=1 tab, PO, Q8H, PRN as needed for muscle spasm, 0 Refill(s) No Longer Active 09/04/2016 [facility] Ativan 2 mg, Route: IVP, Drug form: INJ, ONCE, Dosing Weight 68.182, kg, Priority: STAT, Start date: 09/03/16 21:29:00 COMMUNICATIONS SENIOR ASSOCIATE, Stop date: 09/03/16 21:29:00 COMMUNICATIONS SENIOR ASSOCIATE Inactive 09/04/2016 [facility] potassium chloride 20 mEq oral tablet, extended release 40 mEq, 2 tab, Route: PO, Drug form: ERTAB, ONCE, Dosing Weight 68.182, kg, Priority: STAT, Start date: 09/03/16 21:19:00 COMMUNICATIONS SENIOR ASSOCIATE, Stop date: 09/03/16 21:19:00 CSTNotes: (Same as: K-Dur 20) "Do Not Crush" With food and full glass of water Inactive 09/04/2016 [facility] Dilaudid 0.5 mg, Route: IVP, ONCE, Dosing Weight 68.182, kg, Priority: STAT, Start date: 09/03/16 20:45:00 COMMUNICATIONS SENIOR ASSOCIATE, Stop date: 09/03/16 20:45:00 COMMUNICATIONS SENIOR ASSOCIATE Inactive 09/04/2016 [facility] Ativan 1 mg, Route: IVP, Drug form: INJ, ONCE, Dosing Weight 68.182, kg, Priority: STAT, Start date: 09/03/16 18:19:00 COMMUNICATIONS SENIOR ASSOCIATE, Stop date: 09/03/16 18:19:00 COMMUNICATIONS SENIOR ASSOCIATE Inactive 09/04/2016 [facility] Zofran 8 mg, Route: IVP, Drug form: INJ, ONCE, Dosing Weight 68.182, kg, Priority: STAT, Start date: 09/03/16 18:18:00 COMMUNICATIONS SENIOR ASSOCIATE, Stop date: 09/03/16 18:18:00 COMMUNICATIONS SENIOR ASSOCIATE Inactive 09/04/2016 [facility] Dilaudid 0.5 mg, Route: IVP, ONCE, Dosing Weight 68.182, kg, Priority: STAT, Start date: 09/03/16 18:18:00 COMMUNICATIONS SENIOR ASSOCIATE, Stop date: 09/03/16 18:18:00 COMMUNICATIONS SENIOR ASSOCIATE Inactive 09/04/2016 [facility] Saline Flush 0.9% 10 mL, Route: IVP, Drug Form: INJ, Dosing Weight 79.545, kg, PRN, PRN Line Flush, Start date: 09/03/16 16:44:00 COMMUNICATIONS SENIOR ASSOCIATE, Duration: 30 day, Stop date: 10/03/16 16:43:00 CSTNotes: (Same as: BD Posiflush) Inactive 09/03/2016 [facility] Allergies, Adverse Reactions, Alerts No Known Medication Allergies Immunizations Immunization Date Given Site Status Last Updated Comments Source pneumococcal 23-valent vaccine 09/04/2016 [facility] [place] influenza virus vaccine, inactivated 09/04/2016 Not Given [facility] Results Order Name Results Value Reference Range Date Interpretation Comments Source CARDIAC ENZYMES Troponin-I <0.02 0.00 - 0.40 09/04/2016 [facility] CARDIAC ENZYMES Total CK 61 12 - 191 09/04/2016 [facility] CARDIAC ENZYMES BNP 59 <=100 pg/mL 09/04/2016 [facility] CHEM PANEL Bili Indirect 0.2 0.0 - 1.0 09/04/2016 [facility] CHEM PANEL Bili Direct 0.3 0.0 - 0.3 09/04/2016 [facility] CHEM PANEL A/G Ratio 0.9 0.7 - 1.6 09/04/2016 [facility] CHEM PANEL Globulin 3.6 2.7 - 4.2 09/04/2016 [facility] CHEM PANEL Alk Phos 162 39 - 136 09/04/2016 [facility] CHEM PANEL Bili Total 0.5 0.2 - 1.3 09/04/2016 [facility] CHEM PANEL AST 311 0 - 37 09/04/2016 [facility] CHEM PANEL Albumin Lvl 3.1 3.5 - 5.0 09/04/2016 [facility] CHEM PANEL ALT 181 0 - 65 09/04/2016 [facility] CHEM PANEL Total Protein 6.7 6.4 - 8.4 09/04/2016 [facility] CHEM PANEL Vitamin D2 1,25 (OH)2 <10 09/04/2016 [facility] CHEM PANEL Vitamin D3 1,25 (OH)2 44 09/04/2016 Result Comment: Performed At: [facility]
[address], [place] [id number]
Cong Kincaid MD Ph:[phone] [facility] CHEM PANEL Vitamin D 1,25 (OH)2 Total 54 09/04/2016 Result Comment: Reference Range:
Adults: 21 - 65 [facility] CHEM PANEL Uric Acid 4.1 2.5 - 7.0 09/04/2016 [facility] HEMATOLOGY Sed Rate 8 0 - 20 09/04/2016 [facility] IMMUNOLOGY Homocyst Tot 26.9 3.7 - 13.9 09/04/2016 [facility] LIPIDS CHD Risk 3.75 3.90 - 5.80 09/04/2016 [facility] LIPIDS VLDL 16 09/04/2016 [facility] LIPIDS Trig 78 <=149 mg/dL 09/04/2016 [facility] LIPIDS Chol 135 <=199 mg/dL 09/04/2016 [facility] LIPIDS HDL 36 >=61 mg/dL 09/04/2016 [facility] LIPIDS LDL (Calculated) 83 <=99 mg/dL 09/04/2016 [facility] SPECIAL CHEMISTRY Hgb A1C 5.9 <=5.6 % 09/04/2016 [facility] CARDIAC ENZYMES Troponin-I <0.02 0.00 - 0.40 09/04/2016 [facility] CARDIAC ENZYMES Total CK 96 12 - 191 09/04/2016 [facility] CARDIAC ENZYMES CK MB Index 1.5 0.0 - 2.5 09/04/2016 [facility] CARDIAC ENZYMES CK MB 1.4 0.5 - 3.6 09/04/2016 [facility] CHEM PANEL Phosphorus 4.0 2.5 - 4.5 09/04/2016 [facility] CHEM PANEL Magnesium Lvl 2.4 1.8 - 2.4 09/04/2016 [facility] LIPIDS CHD Risk 4.35 3.90 - 5.80 09/04/2016 [facility] LIPIDS Chol 148 <=199 mg/dL 09/04/2016 [facility] LIPIDS HDL 34 >=61 mg/dL 09/04/2016 [facility] LIPIDS Trig 97 <=149 mg/dL 09/04/2016 [facility] LIPIDS LDL (Calculated) 95 <=99 mg/dL 09/04/2016 [facility] LIPIDS VLDL 19 09/04/2016 [facility] CARDIAC ENZYMES CK MB Index 2.6 0.0 - 2.5 09/03/2016 [facility] CARDIAC ENZYMES CK MB 1.8 0.5 - 3.6 09/03/2016 [facility] CARDIAC ENZYMES Total CK 69 12 - 191 09/03/2016 [facility] CARDIAC ENZYMES Troponin-I <0.02 0.00 - 0.40 09/03/2016 [facility] CHEM PANEL eGFR 82 09/03/2016 Result Comment: [...] should be multiplied by the estimated BMI. [facility] CHEM PANEL BUN 7 7 - 22 09/03/2016 [facility] CHEM PANEL CO2 26 24 - 32 [...] Alk Phos 129 39 - 136 09/03/2016 [facility] CHEM PANEL Bili Total 0.6 0.2 - [...] PANEL AST 53 0 - 37 09/03/2016 [facility] HEMATOLOGY Eosinophils # 8.0 0.0 - 0.5 [...] HEMATOLOGY Segs 37.2 45.0 - 75.0 09/03/2016 [facility] HEMATOLOGY RBC Morph Normal (09/03/16 5:45 PM) 09/03/2016 [facility] HEMATOLOGY Plt Morph Normal (09/03/16 5:45 PM) 09/03/2016 [facility] HEMATOLOGY Lymphocytes 14.8 20.0 - 40.0 09/03/2016 [facility] HEMATOLOGY PTT 28.9 22.9 - 35.8 09/03/2016 [facility] HEMATOLOGY PT 13.1 12.0 - 14.7 09/03/2016 [facility] HEMATOLOGY INR 0.97 0.85 - 1.17 09/03/2016 [facility] HEMATOLOGY MPV 8.1 7.4 - 10.4 09/03/[address] [facility] Platelet 314 133 - 450 09/03/[address] [facility] RDW 16.9 11.5 - 14.5 09/03/[address] [facility] MCHC 32.3 32.0 - 36.0 09/03/[address] [facility] MCH 25.8 27.0 - 31.0 09/03/[address] [facility] WBC 18.1 3.7 - 10.4 09/03/[address] [facility] Hct 35.9 36.0 - 48.0 09/03/[address] [facility] Hgb 11.6 12.0 - 16.0 09/03/[address] [facility] RBC 4.51 4.20 - 5.40 09/03/[address] [facility] MCV 79.7 80.0 - 98.0 09/03/2016 [facility] URINE AND STOOL UA Sq Epi Occasional /LPF Few /LPF 09/03/2016 [facility] URINE AND STOOL UA WBC <1 0 - 5 09/03/2016 [facility] URINE AND STOOL UA Urobilinogen <=1.0 mg/dL 0.1 - 1.0 09/03/2016 [facility] URINE AND STOOL UA RBC 1 0 - 2 09/03/2016 [facility] URINE AND STOOL UA Color Colorless 09/03/2016 [facility] URINE AND STOOL UA Ketones Negative mg/dL Negative mg/dL 09/03/2016 [facility] URINE AND STOOL UA Nitrite Negative (09/03/16 4:53 PM) Negative 09/03/2016 [facility] URINE AND STOOL UA Leuk Est Negative (09/03/16 4:53 PM) Negative 09/03/2016 [facility] URINE AND STOOL UA Bili Negative *NA* (09/03/16 4:53 PM) Negative 09/03/2016 [facility] URINE AND STOOL UA Blood Small *ABN* (09/03/16 4:53 PM) Negative 09/03/2016 [facility] URINE AND STOOL UA Spec Grav 1.003 <=1.030 09/03/2016 [facility] URINE AND STOOL UA pH 6.0 5.0 - 8.0 09/03/2016 [facility] URINE AND STOOL UA Turbidity Clear (09/03/16 4:53 PM) Clear 09/03/2016 [facility] URINE AND STOOL UA Protein Negative mg/dL Negative mg/dL 09/03/2016 [facility] URINE AND STOOL UA Glucose Negative mg/dL Negative mg/dL 09/03/2016 [facility] Pathology Reports No Data Provided for This [...] loops in the left mid abdomen. 03/07/2018 [facility] Chest 2 views DX EXAM: XR CHEST [...] abnormality. Interim cervical spine ACDF surgery. 07/13/2017 [facility] Spine lumbar wo contrast MRI LUMBAR SPINE [...] osteoarthrosis of the right hip joint. 01/22/2017 [facility] Femur series DX EXAM: XR RIGHT HIP [...] osteoarthrosis of the right hip joint. 01/22/2017 [facility] Abdomen RUQ US Study: Abdomen RUQ US [...] cholecystectomy. 2. Otherwise, normal abdomen ultrasound. SL: [id number] 09/04/2016 [facility] Chest/Abdomen/Pelvis w IV contrast CT EXAM: CT CHEST, ABDOMEN, AND PELVIS WITH CONTRAST DATE: 09/03/2016 6:18 PM COMMUNICATIONS SENIOR ASSOCIATE INDICATION: Chest pain. COMPARISON: None. TECHNIQUE: Helical CT imaging of the chest, abdomen and pelvis was performed from thoracic inlet through the lesser trochanters following the administration of intravenous contrast in the arterial phase. Axial, sagittal and coronal multiplanar reconstructions provided. IV contrast: [address] Radiation Dose: PVK=9135.93 mGy-cm FINDINGS: CHEST LUNG PARENCHYMA AND PLEURA: [...] is no evidence for aortic dissection. SL: [id number] 09/03/2016 [facility] Chest 1view DX Patient Name: RAGHAV AGUIRRE : 1960; Age: 56 years y/o Female MR: [id number] Study: Chest 1view DX dated 09/03/2016 Clinical [...] edema and no pneumothorax. SL: [id number] 09/03/2016 [facility] Consultation Notes No Data Provided for This Section Discharge Summaries No Data Provided for This Section History and Physicals No Data Provided for This Section Vital Signs Vital Sign Value Date Comments Source Systolic (mm Hg) 110 03/14/2018 [facility] Diastolic (mm Hg) 68 03/14/2018 [facility] Respitory Rate 20 03/14/2018 [facility] Systolic (mm Hg) 108 03/14/2018 [facility] Diastolic (mm Hg) 58 03/14/2018 [facility] Respitory Rate 20 03/14/2018 [facility] Systolic (mm Hg) 69 03/14/2018 [facility] Diastolic (mm Hg) 54 03/14/2018 [facility] Respitory Rate 19 03/14/2018 [facility] BMI Calculated 27.5 03/13/2018 [facility] Weight 77.273 03/13/2018 [facility] Height 167.64 cm 03/13/2018 [facility] Systolic (mm Hg) 118 06/22/2017 [facility] Diastolic (mm Hg) 61 06/22/2017 [facility] Respitory Rate 16 06/22/2017 [facility] Respitory Rate 16 06/22/2017 [facility] Systolic (mm Hg) 118 06/22/2017 [facility] Diastolic (mm Hg) 58 06/22/2017 [facility] Respitory Rate 18 06/22/2017 [facility] Systolic (mm Hg) 118 06/22/2017 [facility] Diastolic (mm Hg) 61 06/22/2017 [facility] Height 167.64 cm 06/20/2017 [facility] BMI Calculated 25.23 06/20/2017 [facility] Weight 70.909 06/20/2017 [facility] Systolic (mm Hg) 106 09/04/2016 [facility] Diastolic (mm Hg) 66 09/04/2016 [facility] Respitory Rate 17 09/04/2016 [facility] Heart Rate 78 09/04/2016 [facility] Temperature Oral (F) 97.7 F 09/04/2016 [facility] Respitory Rate 17 09/04/2016 [facility] Systolic (mm Hg) 110 09/04/2016 [facility] Diastolic (mm Hg) 64 09/04/2016 [facility] Temperature Oral (F) 97.4 F 09/04/2016 [facility] Heart Rate 79 09/04/2016 [facility] Systolic (mm Hg) 117 09/04/2016 [facility] Diastolic (mm Hg) 75 09/04/2016 [facility] Heart Rate 86 09/04/2016 [facility] Respitory Rate 16 09/04/2016 [facility] Temperature Oral (F) 97.6 F 09/04/2016 [facility] Weight 68.182 09/04/2016 [facility] BMI Calculated 23.56 09/04/2016 [facility] Height 170.1 cm 09/04/2016 [facility] Weight 68.182 09/03/2016 [facility] Height 170.18 cm 09/03/2016 [facility] BMI Calculated 23.54 09/03/2016 [facility] Encounters Location Location Details Encounter Type Encounter Number Reason For Visit Attending Provider ADM Date DC Date Status Source [facility] Observation [id number] Bernard Mcgregor 09/03/2016 09/04/2016 [facility] [place] [facility] [id number] Pietro-Nik Cantu 12/12/2016 12/13/[address] [facility] [place] [facility] [id number] Pietro-Nik Cantu 01/22/2017 01/23/2017 [facility] [place] [facility] [id number] Lamonte Cantu 03/12/2017 03/13/2017 [facility] Bed[facility] Outpatient [id number] Nathan Soriaon 06/22/2017 06/22/2017 [facility] [place] [facility] [id number] Cristobal Gonsales 07/13/2017 07/14/2017 [facility] [place] [facility] [id number] Nathan Soriano 03/07/2018 03/08/2018 [facility] Bedded Outpatient [id number] Nathan Soriano 03/14/2018 03/14/2018 [facility] Procedures Procedure Code Date Perfomer Comments Source Hemorrhoid operation [id number] [facility] Laparoscopic assisted vaginal hysterectomy with repair of cystocele [id number] [facility] Open heart surgery [id number] [facility] Open reduction of dislocation of hand [id number] [facility] Removal of gallbladder [id number] [facility] Assessment and Plan No Data Provided for [...] age: 1; entered on: 06/21/17 02/14/2016 [facility] [place] Social History TypeResponse Substance Abuse Use: None. [...] at age: 1; entered on: 03/14/18 02/14/2016 [facility] Family History No Data Provided for This Section Advance Directives No Data Provided for This Section Functional Status No Data Provided for This Section
[2019-06-05] MEDS ORDERED: KETOROLAC TROMETHAMINE 30 MG/ML VIAL IV ONE (19:25)
[2019-06-05] MEDS ORDERED: DIPHENHYDRAMINE HCL INJ 50 MG/ML VIAL IV ONE (19:30)
[2019-06-05] MEDS ORDERED: METOCLOPRAMIDE HCL 10 MG/2ML VIAL IV ONE (19:30)
[2019-06-05 19:39] LABS: BASOPHILS # (AUTO) 0.2 (0.0-0.1); BASOPHILS % 1.3 % (0.0-1.0); EOSINOPHILS # (AUTO) 0.1 (0.0-0.4); EOSINOPHILS % 0.7 % (0.0-6.0); HEMATOCRIT 34.3 % (34.2-44.1); HEMOGLOBIN 10.6 g/dL (12.0-16.0); LYMPHOCYTES # (AUTO) 2.2 (1.0-3.2); LYMPHOCYTES % 19.8 % (18.0-39.1); MEAN CORPUSCULAR HEMOGLOBIN 25.2 pg (28-32); MEAN CORPUSCULAR HGB CONC 30.9 g/dL (31-35); MEAN CORPUSCULAR VOLUME 81.5 fL (81-99); MONOCYTES # (AUTO) 0.7 (0.2-0.8); MONOCYTES % 6.1 % (4.4-11.3); NEUTROPHILS # (AUTO) 8.1 (2.1-6.9); NEUTROPHILS % 71.8 % (38.7-80.0); PLATELET COUNT 271 x10e3/uL (140-360); RED BLOOD COUNT 4.21 x10e6/uL (3.6-5.1); RED CELL DISTRIBUTION WIDTH 16.8 % (11.7-14.4)
[2019-06-05 19:42] LABS: BILIRUBIN,URINE NEGATIVE (NEGATIVE); CLARITY,URINE CLEAR (CLEAR); COLOR,URINE YELLOW (YELLOW); KETONES,URINE NEGATIVE (NEGATIVE); LEUKOCYTE ESTERASE ,URINE NEGATIVE (NEGATIVE); NITRITE,URINE NEGATIVE (NEGATIVE); PROTEIN,URINE DIPSTICK NEGATIVE (NEGATIVE); URINE UROBILINOGEN 0.2 mg/dL (0.2 - 1)
[2019-06-05 19:48] LABS: AMPHETAMINES SCREEN,URINE NEGATIVE (NEGATIVE); BENZODIAZEPINES SCREEN,URINE NEGATIVE (NEGATIVE); INR 0.92; PARTIAL THROMBOPLASTIN TIME 26.1 seconds (23.8-35.5); PHENCYCLIDINE SCREEN,URINE NEGATIVE (NEGATIVE); PROTHROMBIN TIME 12.8 seconds (11.9-14.5)
--- NOTE | 2019-06-05 19:49 | Diagnostic Imaging Report ---
EXAMINATION: Head CT without contrast. HISTORY:Dizziness, headache and speech disturbance. COMPARISON:None. TECHNIQUE: Multidetector axial images were obtained from the foramen magnum to the vertex without contrast. The images were reconstructed using brain and bone algorithms. Thin section brain images were reformatted into coronal and sagittal planes. Dose modulation, iterative reconstruction, and/or weight based adjustment of the mA/kV was utilized to reduce the radiation dose to as low as reasonably achievable. Intravenous contrast: None IMAGE QUALITY: Acceptable. FINDINGS: Skull/scalp: No lytic or blastic. lesions. No surgical changes. Parenchyma: No abnormal density. No acute hemorrhage, mass or acute major vascular territorial infarct. Arteries: No density suggestive of thrombosis. Dural sinuses: No abnormal density suggestive of thrombosis. Ventricles: No hydrocephalus or displacement. Extra-axial spaces: No abnormal density. Brain volume: Normal for age. Craniocervical junction: No mass, Chiari malformation, or basilar invagination. Sella: No mass. Paranasal/mastoid sinuses: Imaged portions unremarkable. IMPRESSION: No intracranial abnormality. Signed by: Dr. Andressa Llanes M.D. on 06/05/2019 7:46 PM
[2019-06-05 19:56] LABS: AMORPHOUS SEDIMENT,URINE FEW (FEW); BACTERIA,URINE FEW /HPF; EPITHELIAL CELLS,URINE MODERATE /LPF
[2019-06-05 19:57] LABS: ALANINE AMINOTRANSFERASE 10 IU/L (0-55); ALBUMIN 3.9 g/dL (3.5-5.0); ALBUMIN/GLOBULIN RATIO 1.3 (0.8-2.0); ALKALINE PHOSPHATASE 87 IU/L (40-150); ANION GAP 11.7 mmol/L (8-16); BLOOD UREA NITROGEN 15 mg/dL (7-26); BUN/CREATININE RATIO 17 (6-25); CALCIUM 9.3 mg/dL (8.4-10.2); CARBON DIOXIDE 27 mmol/L (22-29); CHLORIDE 105 mmol/L (98-107); CREATINE KINASE 81 IU/L (29-168); CREATININE, SERUM 0.88 mg/dL (0.57-1.11); EST GLOMERULAR FILTRATION RATE > 60 ML/MIN (60-); GLUCOSE 104 mg/dL (74-118); LIPASE 26 U/L (8-78); MAGNESIUM 2.1 MG/DL (1.3-2.1); POTASSIUM 3.7 mmol/L (3.5-5.1); SODIUM 140 mmol/L (136-145)
--- NOTE | 2019-06-05 20:13 | Diagnostic Imaging Report ---
A single frontal view of the chest. HISTORY: Hypertension, dizziness, headache COMPARISON: None available. DISCUSSION: Portable technique, limits sensitivity of the exam. Tubes/Lines: None Lungs and pleura: The lungs are well inflated. No evidence of a consolidative pneumonia or pulmonary alveolar edema. No definite pleural effusion or pneumothorax is identified. Heart and mediastinum: The cardiomediastinal silhouette appear(s) unremarkable. Bones and soft tissues: Multiple median sternotomy wires. Multiple chronic healed left-sided rib fracture deformities. Partially visualized cervical fixation hardware. IMPRESSION: No acute radiographic abnormality. Signed by: Dr. Nathan Simmons D.O., M.M.M. on 06/05/2019 8:10 PM
[2019-06-05 20:30] VITALS: BP 140/66
== END 2019-06-05 21:00 | disposition home or self-care (01) ==
LOC: ER 19:10
DX: I10 Essential (primary) hypertension (principal); R51 Headache; M54.9 Dorsalgia, unspecified; G89.29 Other chronic pain; Z98.1 Arthrodesis status
CPT/HCPCS: 36415; 70450; 71045; 80053; 80307; 81001; 82550; 82553; 83690; 83735; 83880; 84443; 84484; 85025; 85610; 85730; 87086; 99283